=== PATIENT | female | born 1960 | race Caucasian/White ===

== ENCOUNTER 2017-07-19 03:50 | Emergency (ER) | payer OTHER ==
[~2017-07-19] VITALS: Ht 167.6 cm; Wt 88.0 kg
[~2017-07-19 03:50] MED LIST: ADAL40KI INJ; CHOL100010 PO; CLON2TAB3 PO; LANS30CA63 PO; MULT-506 PO; ONDA8TAB62 SL; TOPI200T6 PO
[2017-07-19 03:52] VITALS: TEMP 36.9; Ht 167.6 cm; Wt 88.0 kg
[2017-07-19] MEDS ORDERED: HYDROmorphone INJ 1 MG/ML SYR IV STA ×2 (04:10→06:11)
[2017-07-19] MEDS ORDERED: SODIUM CHLORIDE 0.9% 1000ML 1,000 ML IV STA (04:10)
[2017-07-19] MEDS ORDERED: PROMETHAZINE HCL INJ 25 MG in SODIUM CHLORIDE 0.9% 50ML 50 ML IV STA (04:10)
[2017-07-19] MEDS ORDERED: METHYLPREDNISOLONE 125 MG VIAL IV STA (04:18)
--- NOTE | 2017-07-19 04:31 | EMERGENCY ROOM VISIT NOTE ---
History First contact with patient: 03:59 Chief Complaint: GI ASSESSMENT Stated Complaint: CROHN'S DISEASE FLARE Nursing Triage Summary: Patient states "I have Crohns disease and it was controlled for awhile with Beti. They did an MRI and found active crohns in the middle section. I was on 60 mg of Prednisone then they weaned me down and started me on another medicine. They lowered that medicine. Now I have pain, diarrhea, nausea and acid reflux." History of Present Illness The patient is a 56 year old female who presents to the Emergency Room with complaints of a Crohn's flare. The patient states that she has had Crohn's for the past 25 years. She states that she was on Humira for some time which did seem to help, however this stopped helping earlier this summer. She states that her chief executive or managing director found an active flareup in her jejunum in late Spring. They started her on 60 mg of prednisone and a new medication. She has been weaning down on the prednisone but states that her symptoms have been worsening. She is visiting [facility] from [place] for an bryson ceremony for her . She reports that since arriving here yesterday, she has developed diffuse abdominal pain, nausea and diarrhea. She denies vomiting. She reports having acid reflux which she has had for some time and she feels is due to the steroids. She states this feels similar to flareups she has had in the past, and she usually does well with IV Solu-Medrol, fluids, pain medicine and Phenergan for nausea. She denies any urinary symptoms or fevers/chills. She denies any blood in her stools. Review of Systems A complete 10 point review of systems was reviewed with the patient with pertinent positives and negatives as per history of present illness. All else were negative. Past Medical/Surgical History Medical Problems: (1) Migraine headache Family History No significant family history Social History Smoking Status: Never Smoker Drug Use: none Marital Status: Housing Status: lives with significant other Current/Historical Medications Scheduled Diazepam (Diazepam), 15 MG PO HS Famotidine (Famotidine), 20 MG PO BID Pantoprazole (Pantoprazole Sodium), 40 MG PO BID Paroxetine (Paroxetine HCl), 40 MG PO DAILY Pravastatin Sod (Pravastatin Sodium), 20 MG PO DAILY Prednisone (Prednisone), 20 MG PO DAILY Propranolol (Inderal), 10 MG PO TID [entyvio infusion], 1 DOSE IV q8 weeks Physical Exam Vital Signs Date Time Temp Pulse Resp B/P (MAP) Pulse Ox O2 Delivery O2 Flow Rate FiO2 07/19/17 07:04 91 18 111/87 93 07/19/17 06:28 85 16 116/73 93 Room Air 07/19/17 04:59 90 20 109/69 95 Room Air 07/19/17 03:52 36.9 109 18 122/73 97 Room Air Physical Exam VITALS: Vitals are noted on the nurse's note and reviewed by myself. Vital signs stable. GENERAL: This is a 56-year-old female, in no acute distress, nondiaphoretic, well-developed well-nourished. HEENT: Normocephalic. PERRLA. Mucous membranes moist. Neck is supple without nuchal rigidity. HEART: Regular rate and rhythm without murmurs gallops or rubs. LUNGS: Clear to auscultation bilaterally without wheezes, rales or rhonchi. ABDOMEN: Positive bowel sounds x 4. Soft, mild diffuse tenderness to palpation. No guarding or rebound tenderness. No focal tenderness. NEURO: Patient was alert and oriented to person place and time. Medical Decision & Procedures ER Provider Diagnostic Interpretation: PA CHEST RADIOGRAPH AND UPRIGHT AND SUPINE AP RADIOGRAPHS OF THE ABDOMEN CLINICAL HISTORY: Abdominal pain. History of Crohn's disease. COMPARISON STUDY: No previous studies for comparison. FINDINGS: Lung volumes are normal. Lungs are clear. No pneumothorax or pleural effusion is present. Cardiac size is at the upper limits of normal. There is no evidence of pulmonary edema. Surgical anchor within the right humerus is noted. Old right-sided rib fractures are present. No consolidation is identified. There is no free air. The bowel gas pattern is normal. Pelvic calcifications likely reflect phleboliths. A left abdominal calcification is of doubtful significance. IMPRESSION: 1. No free air or evidence of bowel obstruction. 2. No acute cardiopulmonary findings. Laboratory Results 07/19/17 04:28 Red Blood Count 4.55, Mean Corpuscular Volume 83.1, Mean Corpuscular Hemoglobin 25.9, Mean Corpuscular Hemoglobin Concent 31.2, Mean Platelet Volume 10.3, Neutrophils (%) (Auto) 58.1, Lymphocytes (%) (Auto) 28.6, Monocytes (%) (Auto) 11.2, Eosinophils (%) (Auto) 1.1, Basophils (%) (Auto) 0.3, Neutrophils # (Auto ) 7.09, Lymphocytes # (Auto) 3.50, Monocytes # (Auto) 1.37, Eosinophils # (Auto ) 0.14, Basophils # (Auto) 0.04 07/19/17 04:28 Test 07/19/17 04:28 White Blood Count 12.23 K/uL (4.8-10.8) Red Blood Count 4.55 M/uL (4.2-5.4) Hemoglobin 11.8 g/dL (12.0-16.0) Hematocrit 37.8 % (37-47) Mean Corpuscular Volume 83.1 fL (80-100) Mean Corpuscular Hemoglobin 25.9 pg (25-34) Mean Corpuscular Hemoglobin Concent 31.2 g/dl (32-36) Platelet Count 343 K/uL (130-400) Mean Platelet Volume 10.3 fL (7.4-10.4) Neutrophils (%) (Auto) 58.1 % Lymphocytes (%) (Auto) 28.6 % Monocytes (%) (Auto) 11.2 % Eosinophils (%) (Auto) 1.1 % Basophils (%) (Auto) 0.3 % Neutrophils # (Auto) 7.09 K/uL (1.4-6.5) Lymphocytes # (Auto) 3.50 K/uL (1.2-3.4) Monocytes # (Auto) 1.37 K/uL (0.11-0.59) Eosinophils # (Auto) 0.14 K/uL (0-0.5) Basophils # (Auto) 0.04 K/uL (0-0.2) RDW Standard Deviation 53.5 fL (36.4-46.3) RDW Coefficient of Variation 17.4 % (11.5-14.5) Immature Granulocyte % (Auto) 0.7 % Immature Granulocyte # (Auto) 0.09 K/uL (0.00-0.02) Anion Gap 11.0 mmol/L (3-11) Est Creatinine Clear Calc Drug Dose 70.2 ml/min Estimated GFR () 72.9 Estimated GFR (Non- 62.9 BUN/Creatinine Ratio 20.8 (10-20) Calcium Level 8.6 mg/dl (8.5-10.1) Total Bilirubin 0.3 mg/dl (0.2-1) Aspartate Amino Transf (AST/SGOT) U/L (15-37) Alanine Aminotransferase (ALT/SGPT) 31 U/L (12-78) Alkaline Phosphatase 72 U/L (45-117) Total Protein 6.9 gm/dl (6.4-8.2) Albumin 3.5 gm/dl (3.4-5.0) Globulin 3.4 gm/dl (2.5-4.0) Albumin/Globulin Ratio 1.0 (0.9-2) Lipase 111 U/L (73-393) Medications Administered Medications (Trade) Dose Ordered Sig/Leslie Route Start Time Stop Time Status Last Admin Dose Admin Sodium Chloride 1,000 ml @ 999 mls/hr Q1H1M STAT IV 07/19/17 04:10 07/19/17 05:10 DC 07/19/17 04:36 999 MLS/HR Promethazine HCl 25 mg/Sodium Chloride 51 ml @ 204 mls/hr NOW STAT IV 07/19/17 04:10 07/19/17 04:24 DC 07/19/17 04:37 204 MLS/HR Hydromorphone HCl (Dilaudid Inj) 1 mg NOW STAT IV 07/19/17 04:10 07/19/17 04:14 DC 07/19/17 04:59 1 MG Methylprednisolone Sodium Succinate (Solu-Medrol IV) 125 mg NOW STAT IV 07/19/17 04:18 07/19/17 04:19 DC 07/19/17 04:57 125 MG Diphenhydramine HCl (Benadryl Inj) 25 mg NOW STAT IV 07/19/17 05:03 07/19/17 05:04 DC 07/19/17 05:09 25 MG Hydromorphone HCl (Dilaudid Inj) 1 mg NOW STAT IV 07/19/17 06:11 07/19/17 06:12 DC 07/19/17 06:26 1 MG ED Course The patient was evaluated as above. Labs were drawn and IV access was obtained. Patient was medicated with 1 L normal saline solution, 125 mg IV Medrol IV, 25 mg Phenergan IV and 1 mg Dilaudid. Patient reported to nursing staff that she develops itchiness when she receives pain medications. She was given 25 mg Benadryl. Patient was reevaluated by myself and states that her symptoms have improved, but she is still having some pain. An additional 1 mg Dilaudid IV was ordered. Patient was reevaluated and was feeling better. She will be discharged home. Discharge instructions were reviewed with the patient. The patient verbalized understanding of my assessment and treatment plan and was discharged home in good condition. Medical Decision Differential diagnosis includes Crohn's flare, bowel obstruction, fistula, intra -abdominal abscess, gastritis, gastroenteritis, colitis, among others. The patient is a 56-year-old female who presents today complaining of abdominal pain consistent with a Crohn's flare. Labs revealed a mild leukocytosis, likely secondary to the patient's steroid use. Labs are otherwise unremarkable. Abdominal series showed no evidence of obstruction. Patient is afebrile. She reports the symptoms are consistent with previous Crohn's flares and she seems to have very close follow-up with her chief executive or managing director. The patient was treated with IV Dilaudid, Phenergan and Solu-Medrol with significant improvement of her symptoms. She is returning home later this evening and plans to follow-up with her chief executive or managing director. I discussed options of care including further workup such as CT scan versus discharge home to follow-up closely with the chief executive or managing director, the patient much prefers to be discharged home. She was advised to return here for any worsening or new/ concerning symptoms. She was agreeable to this treatment plan. Based on the patient's presentation and work up, I feel the patient is stable for outpatient treatment. The patient was educated to return to the emergency department for any worsening of their current condition or new/concerning symptoms. She will follow up with her primary care provider and GI. Medication Reconcilliation Current Medication List: was personally reviewed by me Blood Pressure Screening Patient's blood pressure: Normal blood pressure Impression Primary Impression: Crohn's disease Additional Impression: Generalized abdominal pain Departure Information Dispostion Home / Self-Care Condition GOOD Referrals No Doctor, Assigned (PCP) Patient Instructions My [facility] Additional Instructions You have been treated in the Emergency Department your Abdominal Pain. Laboratory results and imaging studies have ruled out any emergent causes for your abdominal pain which would warrant admission or surgery. Call your chief executive or managing director to schedule follow-up. Drink plenty of water and stay well hydrated. Return to the emergency department if your symptoms persist despite treatment plan outlined above or for any worsening or new/concerning symptoms. Problem Qualifiers
[2017-07-19 04:37] LABS: BASO % 0.3 %; BASO ABS # 0.04 K/uL (0-0.2); COMPLETE YES; EOS % 1.1 %; HEMATOCRIT 37.8 % (37-47); IG% 0.7 %; LYMPH % 28.6 %; MEAN CELL VOLUME 83.1 fL (80-100); MEAN CORPUSCULAR HEMOGLOBIN 25.9 pg (25-34); MEAN CORPUSCULAR HGB CONC 31.2 g/dl (32-36); MEAN PLATELET VOLUME 10.3 fL (7.4-10.4); MONO % 11.2 %; NEUT % 58.1 %; PLATELET COUNT 343 K/uL (130-400); RED BLOOD COUNT 4.55 M/uL (4.2-5.4); WHITE BLOOD COUNT 12.23 K/uL (4.8-10.8)
[2017-07-19] MEDS ORDERED: DiphenhydrAMINE HCL 50 MG/ML VIAL IV STA (05:03)
[2017-07-19 05:18] LABS: ALKALINE PHOSPHATASE 72 U/L (45-117); ALT/SGPT 31 U/L (12-78); BLOOD UREA NITROGEN 21 mg/dl (7-18); BUN/CREATININE RATIO 20.8 (10-20); CALCIUM 8.6 mg/dl (8.5-10.1); CARBON DIOXIDE 22 mmol/L (21-32); CHLORIDE 108 mmol/L (98-107); GLUCOSE 110 mg/dl (70-99); SODIUM 141 mmol/L (136-145)
[2017-07-19] MEDS ORDERED: PROP10TA7 PO (06:26)
[2017-07-19] MEDS ORDERED: VLM5CL PO (06:26)
[2017-07-19] MEDS ORDERED: FAMO1TAB47 PO (06:26)
[2017-07-19] MEDS ORDERED: PRX/40 PO (06:26)
[2017-07-19] MEDS ORDERED: PRT/40 PO (06:26)
[2017-07-19] MEDS ORDERED: PRED-301 PO (06:27)
[2017-07-19] MEDS ORDERED: PRVC/20 PO (06:27)
[2017-07-19] MEDS ORDERED: [UNRECOGNIZED DRUG - OTHER] IV (06:29)
--- NOTE | 2017-07-19 06:49 | DIAGNOSTIC IMAGING REPORT ---
PA CHEST RADIOGRAPH AND UPRIGHT AND SUPINE AP RADIOGRAPHS OF THE ABDOMEN CLINICAL HISTORY: Abdominal pain. History of Crohn's disease. COMPARISON STUDY: No previous studies for comparison. FINDINGS: Lung volumes are normal. Lungs are clear. No pneumothorax or pleural effusion is present. Cardiac size is at the upper limits of normal. There is no evidence of pulmonary edema. Surgical anchor within the right humerus is noted. Old right-sided rib fractures are present. No consolidation is identified. There is no free air. The bowel gas pattern is normal. Pelvic calcifications likely reflect phleboliths. A left abdominal calcification is of doubtful significance. IMPRESSION: 1. No free air or evidence of bowel obstruction. 2. No acute cardiopulmonary findings. Electronically signed by: Gwyn Tucker M.D. 07/19/2017 6:48 AM Dictated Date/Time: 07/19/2017 6:47 AM
[2017-07-19 07:04] VITALS: BP 111/87; PULSE 91; O2SAT 93
== END 2017-07-19 07:05 | disposition home or self-care (01) ==
LOC: C.EDB 03:51 → C.EDA 07:05
DX: K52.9 Noninfective gastroenteritis and colitis, unspecified (principal); R10.84 Generalized abdominal pain; Z79.899 Other long term (current) drug therapy; Z79.52 Long term (current) use of systemic steroids

== ENCOUNTER 2017-07-21 09:30 | Inpatient (IN) | payer OTHER ==
[~2017-07-21] VITALS: Ht 167.6 cm; Wt 87.8 kg
[~2017-07-21 09:30] MED LIST changes: -ADAL40KI INJ; -CHOL100010 PO; -CLON2TAB3 PO; +FAMO1TAB47 PO; -LANS30CA63 PO; -MULT-506 PO; -ONDA8TAB62 SL; +PRED-301 PO; +PROP10TA7 PO; +PRT/40 PO; +PRVC/20 PO; +PRX/40 PO; -TOPI200T6 PO; +VLM5CL PO; +[UNRECOGNIZED DRUG - OTHER] IV
[2017-07-21] MEDS ORDERED: ONDANSETRON INJ 2 MG/ML 2 ML VIAL IV STA (09:58)
[2017-07-21] MEDS ORDERED: FAMOTIDINE 20MG/102 ML D5W IV STA (09:58)
[2017-07-21] MEDS ORDERED: MoRPHine SULFATE 4 MG/ML 1 ML CARP\\VIAL IV STA (09:58)
[2017-07-21] MEDS ORDERED: SODIUM CHLORIDE 0.9% 1000ML 1,000 ML IV STA ×3 (09:58→13:38)
--- NOTE | 2017-07-21 10:11 | EMERGENCY ROOM VISIT NOTE ---
History Report prepared by Deneen: Murphy Jenkins Under the Supervision of: Dr. Johnie Gay M.D. First contact with patient: 09:45 Chief Complaint: OTHER COMPLAINT Stated Complaint: CROHNS FLARE History of Present Illness The patient is a 56 year old female who presents to the Emergency Room with complaints of lower abdominal pain that began a couple of days ago. She rates her pain an 8/10 in severity. She was seen in the ER two days ago for Crohn's disease flare. She was diagnosed with Crohn's disease 25 years ago. She notes that she was taking Humira, but it stopped helping her symptoms. She has also tried Prednisone and Entyvio with no relief. She started on 60 mg of Prednisone but is now down to 20 mg. 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 She has recently tried a full liquid diet, but tried to eat solid food last night. This exacerbated her symptoms. She states her symptoms have not been this severe for the past 20 years. She is also experiencing nausea , vomiting, and diarrhea. Her abdominal pain worsens with movement. She denies any fevers, chills, back pain, hematochezia, melena, or abnormal urinary symptoms. She has a history of small bowel obstructions and notes that her symptoms do not seem like that. Source of History: patient Onset: a couple of days ago Position: abdomen Symptom Intensity: 8/10 Quality: sharp Timing: constant Modifying Factors (Worsening): movement Associated Symptoms: + nausea, + vomiting, + diarrhea, No fevers, No chills , No back pain, No melena, No hematochezia, No urinary symptoms Review of Systems See HPI for pertinent positives and negatives. A total of ten systems were reviewed and were otherwise negative. Past Medical & Surgical Medical Problems: (1) Migraine headache Family History No significant family history Social History Smoking Status: Never Smoker Drug Use: none Marital Status: Housing Status: lives with significant other Current/Historical Medications Scheduled Diazepam (Diazepam), 15 MG PO HS Famotidine (Famotidine), 20 MG PO BID Pantoprazole (Pantoprazole Sodium), 40 MG PO BID Paroxetine (Paroxetine HCl), 40 MG PO DAILY Pravastatin Sod (Pravastatin Sodium), 20 MG PO DAILY Prednisone (Prednisone), 20 MG PO DAILY Propranolol (Inderal), 10 MG PO TID [entyvio infusion], 1 DOSE IV q8 weeks Allergies Coded Allergies: NSAIDs (Unverified Allergy, Unknown, ., 07/21/17) CAN'T TAKE DUE TO CROHNS Penicillins (Verified Allergy, Unknown, rash, 07/21/17) Sulfa Drugs (Verified Allergy, Unknown, rash, 07/21/17) Metoclopramide (Verified Adverse Reaction, Intermediate, LEGS KICK INVOLUNTARILY, 07/21/17) Sumatriptan (Verified Adverse Reaction, Intermediate, LIGHTHEADED, 07/21/17 ) Physical Exam Vital Signs Date Time Temp Pulse Resp B/P (MAP) Pulse Ox O2 Delivery O2 Flow Rate FiO2 07/21/17 14:09 87 18 129/90 95 Room Air 07/21/17 12:05 86 15 108/73 95 Room Air 07/21/17 11:21 82 07/21/17 11:15 78 18 111/82 97 Room Air 07/21/17 09:34 36.5 96 22 132/85 98 Room Air Physical Exam GENERAL: Awake, alert, appearing to be uncomfortable but in no acute distress HENT: Normocephalic, atraumatic. Dry mucous membranes. EYES: Normal conjunctiva. Sclera non-icteric. NECK: Supple. No nuchal rigidity. FROM. No JVD. RESPIRATORY: Clear to auscultation. CARDIAC: Regular rate, normal rhythm. Extremities warm and well perfused. Pulses equal. ABDOMEN: Soft, mild abdominal bloating but no significant distention. Mild LLQ and epigastrium tenderness to palpation. No rebound or guarding. No masses. No peritoneal signs. RECTAL: Deferred. MUSCULOSKELETAL: Chest examination reveals no tenderness. The back is symmetrical on inspection without obvious abnormality. There is no CVA tenderness to palpation. No joint edema. LOWER EXTREMITIES: Calves are equal size bilaterally and non-tender. No edema. No discoloration. NEURO: Normal sensorium. No sensory or motor deficits noted. SKIN: No rash or jaundice noted. Medical Decision & Procedures ER Provider Diagnostic Interpretation: Radiology results as stated below per my review and radiologist interpretation: ABDOMEN AND PELVIS CT WITH IV CONTRAST CT DOSE: 710.94 mGy.cm HISTORY: LLQ abd pain h/o Crohn's TECHNIQUE: Multiaxial CT images of the abdomen and pelvis were performed following the use of intravenous contrast. A dose lowering technique was utilized adhering to the principles of ALARA. COMPARISON STUDY: Chest and abdominal series 07/19/2017. FINDINGS: The lung bases are clear. The liver, spleen, adrenal glands, pancreas, and kidneys are unremarkable. There are few gallstones. No retroperitoneal lymphadenopathy. The bladder, uterus, and ovaries are unremarkable. No bowel obstruction. Normal appendix. Mild thickening and minimal pericolonic fat stranding at the splenic flexure of the colon and descending colon. This is consistent with a nonspecific colitis. IMPRESSION: 1. Mild thickening and minimal pericolonic fat stranding at the splenic flexure of the colon and descending colon. This is consistent with a nonspecific colitis. However, this favors an inflammatory etiology given the patient's history of Crohn's disease. 2. Cholelithiasis. Electronically signed by: Valdemar Diallo M.D. 07/21/2017 1:04 PM Dictated Date/Time: 07/21/2017 1:00 PM Laboratory Results 07/21/17 11:12 Red Blood Count 4.55, Mean Corpuscular Volume 83.7, Mean Corpuscular Hemoglobin 26.8, Mean Corpuscular Hemoglobin Concent 32.0, Mean Platelet Volume 10.1, Neutrophils (%) (Auto) 80.0, Lymphocytes (%) (Auto) 14.3, Monocytes (%) (Auto) 4.3, Eosinophils (%) (Auto) 0.6, Basophils (%) (Auto) 0.3, Neutrophils # (Auto) 8.97, Lymphocytes # (Auto) 1.61, Monocytes # (Auto) 0.48, Eosinophils # (Auto) 0.07, Basophils # (Auto) 0.03 07/21/17 11:12 Test 07/21/17 11:12 07/21/17 13:17 White Blood Count 11.22 K/uL (4.8-10.8) Red Blood Count 4.55 M/uL (4.2-5.4) Hemoglobin 12.2 g/dL (12.0-16.0) Hematocrit 38.1 % (37-47) Mean Corpuscular Volume 83.7 fL (80-100) Mean Corpuscular Hemoglobin 26.8 pg (25-34) Mean Corpuscular Hemoglobin Concent 32.0 g/dl (32-36) Platelet Count 349 K/uL (130-400) Mean Platelet Volume 10.1 fL (7.4-10.4) Neutrophils (%) (Auto) 80.0 % Lymphocytes (%) (Auto) 14.3 % Monocytes (%) (Auto) 4.3 % Eosinophils (%) (Auto) 0.6 % Basophils (%) (Auto) 0.3 % Neutrophils # (Auto) 8.97 K/uL (1.4-6.5) Lymphocytes # (Auto) 1.61 K/uL (1.2-3.4) Monocytes # (Auto) 0.48 K/uL (0.11-0.59) Eosinophils # (Auto) 0.07 K/uL (0-0.5) Basophils # (Auto) 0.03 K/uL (0-0.2) RDW Standard Deviation 54.5 fL (36.4-46.3) RDW Coefficient of Variation 17.6 % (11.5-14.5) Immature Granulocyte % (Auto) 0.5 % Immature Granulocyte # (Auto) 0.06 K/uL (0.00-0.02) Anion Gap 8.0 mmol/L (3-11) Est Creatinine Clear Calc Drug Dose 58.4 ml/min Estimated GFR () 58.5 Estimated GFR (Non- 50.5 BUN/Creatinine Ratio 13.5 (10-20) Lactic Acid Level 3.1 mmol/L (0.4-2.0) Calcium Level 9.1 mg/dl (8.5-10.1) Total Bilirubin 0.3 mg/dl (0.2-1) Direct Bilirubin < 0.1 mg/dl (0-0.2) Aspartate Amino Transf (AST/SGOT) 14 U/L (15-37) Alanine Aminotransferase (ALT/SGPT) 30 U/L (12-78) Alkaline Phosphatase 70 U/L (45-117) Total Protein 7.0 gm/dl (6.4-8.2) Albumin 3.7 gm/dl (3.4-5.0) Lipase 137 U/L (73-393) Urine Color YELLOW Urine Appearance CLEAR (CLEAR) Urine pH 5.0 (4.5-7.5) Urine Specific [place] 1.040 (1.000-1.030) Urine Protein NEG (NEG) Urine Glucose (UA) NEG (NEG) Urine Ketones NEG (NEG) Urine Occult Blood NEG (NEG) Urine Nitrite NEG (NEG) Urine Bilirubin NEG (NEG) Urine Urobilinogen NEG (NEG) Urine Leukocyte Esterase NEG (NEG) Laboratory results reviewed by me Medications Administered Medications (Trade) Dose Ordered Sig/Leslie Route Start Time Stop Time Status Last Admin Dose Admin Sodium Chloride 1,000 ml @ 999 mls/hr Q1H1M STAT IV 07/21/17 09:58 07/21/17 10:58 DC 07/21/17 09:58 999 MLS/HR Ondansetron HCl (Zofran Inj) 4 mg NOW STAT IV 07/21/17 09:58 07/21/17 10:06 DC 07/21/17 11:17 4 MG Famotidine (Pepcid 20mg/100 ml) 20 mg ONE STAT IV 07/21/17 09:58 07/21/17 10:06 DC 07/21/17 11:19 20 MG Morphine Sulfate (MoRPHine SULFATE INJ) 6 mg NOW STAT IV 07/21/17 09:58 07/21/17 10:06 DC 07/21/17 11:19 6 MG Sodium Chloride 1,000 ml @ 999 mls/hr Q1H1M STAT IV 07/21/17 11:47 07/21/17 12:47 DC 07/21/17 14:04 999 MLS/HR Acetaminophen 100 ml @ 400 mls/hr NOW STAT IV 07/21/17 11:51 07/21/17 12:05 DC 07/21/17 12:00 400 MLS/HR Hydromorphone HCl (Dilaudid Inj) 1 mg NOW STAT IV 07/21/17 13:53 07/21/17 13:55 DC 07/21/17 14:04 1 MG Ondansetron HCl (Zofran Inj) 4 mg Q6H PRN IV 07/21/17 14:45 08/20/17 14:44 07/21/17 16:31 4 MG Sodium Chloride 1,000 ml @ 100 mls/hr Q10H IV 07/21/17 14:45 08/20/17 14:44 07/21/17 23:57 100 MLS/HR Methylprednisolone Sodium Succinate (Solu-Medrol IV) 125 mg NOW STAT IV 07/21/17 14:32 07/21/17 14:45 DC 10/6/17 14:52 125 MG Morphine Sulfate (MoRPHine SULFATE INJ) 1 mg Q4H PRN IV 07/21/17 14:45 08/04/17 14:44 07/21/17 23:57 1 MG Promethazine HCl 25 mg/Sodium Chloride 51 ml @ 204 mls/hr Q6H PRN IV 07/21/17 14:45 08/20/17 14:44 07/21/17 19:20 204 MLS/HR ED Course 0945: The patient was evaluated in room B2. A complete history and physical exam was performed. 0958: Ordered Morphine Sulfate 6 mg IV, Famotidine 20 mg IV, Zofran Inj 4 mg IV , Sodium Chloride 1000 ml @ 999 mls/hr IV 1147: Ordered Sodium Chloride 1000 ml @ 999 mls/hr IV 1151: Ordered Acetaminophen 100 ml @ 400 mls/hr IV 1338: Ordered Sodium Chloride 1000 ml @ 999 mls/hr IV 1353: Ordered Dilaudid Inj 1 mg IV 1358: Upon reexamination, the patient was resting. I discussed the test results and treatment plan with Dr. Evangelista of [facility] [place] The patient will be evaluated for further management. Medical Decision I reviewed the patient's past medical history, medications, and the nursing notes as described above. Differential diagnoses include Crohn's' flare, colitis, diverticulitis, partial bowel obstruction, biliary etiology, gastroenterology, UTI, and pyelonephritis. The patient is a 56-year-old woman with a past medical history of Crohn's who presents emergency Department with worsening pain, nausea, diarrhea after being seen in the ED 2 days ago for similar symptoms per history of present illness. Arrival the patient appears uncomfortable but in no acute distress, afebrile with stable vital signs. Exam has mild left lower quadrant and epigastric tenderness to palpation without peritoneal signs, mild bloating but no significant distention. Given this is the patient's repeat visit in with worsening symptoms with her history of partial obstruction will obtain CT scan. WBC 11.2 improved from prior however lactate elevated at 3.1. Labs otherwise unremarkable. CT of the abdomen and pelvis showing stranding surrounding the splenic flexure with findings consistent with flare from the patient's Crohn disease. Despite the patient's elevated lactate, given the patient's WBC is improving and she is otherwise afebrile and nontoxic, her hyperlacticemia is most likely due to dehydration and inflammation and thus will defer antibiotics at this time. Case was discussed with medicine hospitalist will admit the patient for further management. Medication Reconcilliation Current Medication List: was personally reviewed by me Blood Pressure Screening Patient's blood pressure: Normal blood pressure Blood pressure disposition: Did not require urgent referral Consults Time Called: [id number] Consulting Physician: Dr. Evangelista - [facility] [place] Returned Call: [phone] Discussed the patient's case. The patient will be evaluated for further treatment and disposition. Impression Primary Impression: Exacerbation of Crohn's disease Scribe Attestation The scribe's documentation has been prepared under my direction and personally reviewed by me in its entirety. I confirm that the note above accurately reflects all work, treatment, procedures, and medical decision making performed by me. Departure Information Dispostion Being Evaluated By Hospitalist Referrals No Doctor, Assigned (PCP) Patient Instructions My [facility]
[2017-07-21 11:32] LABS: BASO % 0.3 %; BASO ABS # 0.03 K/uL (0-0.2); COMPLETE YES; EOS % 0.6 %; HEMATOCRIT 38.1 % (37-47); IG% 0.5 %; LYMPH % 14.3 %; LYMPH ABS # 1.61 K/uL (1.2-3.4); MEAN CELL VOLUME 83.7 fL (80-100); MEAN CORPUSCULAR HEMOGLOBIN 26.8 pg (25-34); MEAN PLATELET VOLUME 10.1 fL (7.4-10.4); MONO % 4.3 %; PLATELET COUNT 349 K/uL (130-400); RED BLOOD COUNT 4.55 M/uL (4.2-5.4); WHITE BLOOD COUNT 11.22 K/uL (4.8-10.8)
[2017-07-21 11:44] LABS: ALT/SGPT 30 U/L (12-78); BLOOD UREA NITROGEN 16 mg/dl (7-18); BUN/CREATININE RATIO 13.5 (10-20); CALCIUM 9.1 mg/dl (8.5-10.1); CARBON DIOXIDE 26 mmol/L (21-32); CHLORIDE 108 mmol/L (98-107); GLUCOSE 116 mg/dl (70-99); POTASSIUM 3.8 mmol/L (3.5-5.1); SODIUM 143 mmol/L (136-145)
[2017-07-21 11:47] LABS: ALKALINE PHOSPHATASE 70 U/L (45-117); AST/SGOT 14 U/L (15-37)
[2017-07-21] MEDS ORDERED: ACETAMINOPHEN IV 100 ML IV STA (11:51)
[2017-07-21] MEDS ORDERED: OPTIRAY 320 IV PRN (12:00)
--- NOTE | 2017-07-21 13:06 | DIAGNOSTIC IMAGING REPORT ---
ABDOMEN AND PELVIS CT WITH IV CONTRAST CT DOSE: 710.94 mGy.cm HISTORY: LLQ abd pain h/o Crohn's TECHNIQUE: Multiaxial CT images of the abdomen and pelvis were performed following the use of intravenous contrast. A dose lowering technique was utilized adhering to the principles of ALARA. COMPARISON STUDY: Chest and abdominal series 07/19/2017. FINDINGS: The lung bases are clear. The liver, spleen, adrenal glands, pancreas, and kidneys are unremarkable. There are few gallstones. No retroperitoneal lymphadenopathy. The bladder, uterus, and ovaries are unremarkable. No bowel obstruction. Normal appendix. Mild thickening and minimal pericolonic fat stranding at the splenic flexure of the colon and descending colon. This is consistent with a nonspecific colitis. IMPRESSION: 1. Mild thickening and minimal pericolonic fat stranding at the splenic flexure of the colon and descending colon. This is consistent with a nonspecific colitis. However, this favors an inflammatory etiology given the patient's history of Crohn's disease. 2. Cholelithiasis. Electronically signed by: Valdemar Diallo M.D. 07/21/2017 1:04 PM Dictated Date/Time: 07/21/2017 1:00 PM
[2017-07-21 13:38] LABS: URINE APPEARANCE CLEAR (CLEAR); URINE BILIRUBIN NEG (NEG); URINE COLOR YELLOW; URINE NITRITE NEG (NEG); UROBILINOGEN NEG (NEG); ZZUR CULT IF INDIC CLEAN CATCH NO
[2017-07-21 13:39] LABS: MANUAL MICROSCOPIC REQUIRED? NO; REVIEW REQ? NO
[2017-07-21] MEDS ORDERED: HYDROmorphone INJ 0.5 MG/0.5 ML SYR IV STA (13:53)
[2017-07-21] MEDS ORDERED: METHYLPREDNISOLONE 125 MG VIAL IV STA (14:32)
[2017-07-21] MEDS ORDERED: ACETAMINOPHEN 325 MG TAB PO PRN (14:45)
[2017-07-21] MEDS ORDERED: MAGNESIUM HYDROXIDE SUSP 30 ML UDC PO PRN (14:45)
--- NOTE | 2017-07-21 14:57 | History and Physical ---
History & Physical Date & Time of Service: Jul 21, 2017 at 14:35 Chief Complaint: Crohns Flare Primary Care Physician: No Doctor, Assigned History of Present Illness Source: patient 56 y/o F c/o abd pain. Pt states she has had Crohn's for 25 yrs. She has been through many different medications over this time. Most recently, pt had been on Beti and this had worked for her for some time, however she started to have abd pain again and MRI revealed active Crohn's in her jejunum. She was taken off of Beti and put on a full liquid diet with prednisone, however she gained about 50 lbs with this. About 1 month ago, pt was started on Entyrio. She had her first dose, then a dose 1 week later, then 2 weeks later, and per protocol her next dose is due 8 weeks after the last, which will be 08/29. During the course of Entyrio, she has been on a prednisone taper starting at 60mg. She is currently on 20mg. She has been having ongoing issues with abd pain, n/v/d, and intolerance to PO with decreased intake. Pt states her pain was across her entire abd on presentation. She travelled to [place] with her so that he could accept an award from [facility]. Pt states they got to the hotel late and ordered room service. She had a burger given limited options despite not having had this food in over a year. She started having more abd pain, n/v/d and was seen in the ED 2 days ago. She was given solu-medrol, benadryl, phenergan, IVF and felt better. She was d/c'd at that time. At the award ceremony there was also a meal provided and she ate a salad which she also does not typically eat. Her sx started to get worse again yesterday and have continued to worsen. She could not tolerate PO today. s/p IVF and pain medications in the ED, pt is still with abd pain, but improving. Pain is now more localized on the L side of her abd. She has otherwise been in her usual state of health. She has increased anxiety which is typical for her, but otherwise denies fever, SOB, chest pain, LE pain or swelling. Pt states she plans to f/u with her GI provider once she is home as they have ongoing plans regarding her further management if the Entyrio did not work, which does seem to be the case. Past Medical/Surgical History Medical Problems: (1) Migraine headache Status: Chronic Crohn's Hyperlipidemia GERD Anxiety Insomnia Hx of pSBO related to Crohn's Family History No significant family history Mother suddenly Social History Smoking Status: Never Smoker Alcohol Use: none Drug Use: none Marital Status: Allergies Coded Allergies: NSAIDs (Unverified Allergy, Unknown, ., 07/21/17) CAN'T TAKE DUE TO CROHNS Penicillins (Verified Allergy, Unknown, rash, 07/21/17) Sulfa Drugs (Verified Allergy, Unknown, rash, 07/21/17) Metoclopramide (Verified Adverse Reaction, Intermediate, LEGS KICK INVOLUNTARILY, 07/21/17) Sumatriptan (Verified Adverse Reaction, Intermediate, LIGHTHEADED, 07/21/17 ) Home Medications Scheduled Diazepam (Diazepam), 15 MG PO HS Famotidine (Famotidine), 20 MG PO BID Pantoprazole (Pantoprazole Sodium), 40 MG PO BID Paroxetine (Paroxetine HCl), 40 MG PO DAILY Pravastatin Sod (Pravastatin Sodium), 20 MG PO DAILY Prednisone (Prednisone), 20 MG PO DAILY Propranolol (Inderal), 10 MG PO TID [entyvio infusion], 1 DOSE IV q8 weeks Review of Systems Pertinent positives and negatives reviewed in HPI--all others negative Physical Exam Vital Signs Date Time Temp Pulse Resp B/P (MAP) Pulse Ox O2 Delivery O2 Flow Rate FiO2 07/21/17 14:09 87 18 129/90 95 Room Air 07/21/17 12:05 86 15 108/73 95 Room Air 07/21/17 11:21 82 07/21/17 11:15 78 18 111/82 97 Room Air 07/21/17 09:34 36.5 96 22 132/85 98 Room Air General Appearance: WD/WN, no apparent distress Head: normocephalic, atraumatic, + pertinent finding (swelling c/w chronic steroid use) Eyes: normal inspection, EOMI ENT: hearing grossly normal Neck: supple Respiratory/Chest: normal breath sounds, no respiratory distress Cardiovascular: regular rate, rhythm, no edema Abdomen/GI: soft, + tenderness (L lateral) Diagnostics Laboratory Results Results Past 24 Hours Test 07/21/17 11:12 07/21/17 13:17 Range/Units White Blood Count 11.22 4.8-10.8 K/uL Red Blood Count 4.55 4.2-5.4 M/uL Hemoglobin 12.2 12.0-16.0 g/dL Hematocrit 38.1 37-47 % Mean Corpuscular Volume 83.7 80-100 fL Mean Corpuscular Hemoglobin 26.8 25-34 pg Mean Corpuscular Hemoglobin Concent 32.0 32-36 g/dl Platelet Count 349 130-400 K/uL Mean Platelet Volume 10.1 7.4-10.4 fL Neutrophils (%) (Auto) 80.0 % Lymphocytes (%) (Auto) 14.3 % Monocytes (%) (Auto) 4.3 % Eosinophils (%) (Auto) 0.6 % Basophils (%) (Auto) 0.3 % Neutrophils # (Auto) 8.97 1.4-6.5 K/uL Lymphocytes # (Auto) 1.61 1.2-3.4 K/uL Monocytes # (Auto) 0.48 0.11-0.59 K/uL Eosinophils # (Auto) 0.07 0-0.5 K/uL Basophils # (Auto) 0.03 0-0.2 K/uL RDW Standard Deviation 54.5 36.4-46.3 fL RDW Coefficient of Variation 17.6 11.5-14.5 % Immature Granulocyte % (Auto) 0.5 % Immature Granulocyte # (Auto) 0.06 0.00-0.02 K/uL Sodium Level 143 136-145 mmol/L Potassium Level 3.8 3.5-5.1 mmol/L Chloride Level 108 98-107 mmol/L Carbon Dioxide Level 26 21-32 mmol/L Anion Gap 8.0 3-11 mmol/L Blood Urea Nitrogen 16 7-18 mg/dl Creatinine 1.20 0.60-1.20 mg/dl Est Creatinine Clear Calc Drug Dose 58.4 ml/min Estimated GFR () 58.5 Estimated GFR (Non- 50.5 BUN/Creatinine Ratio 13.5 10-20 Random Glucose 116 70-99 mg/dl Lactic Acid Level 3.1 0.4-2.0 mmol/L Calcium Level 9.1 8.5-10.1 mg/dl Total Bilirubin 0.3 0.2-1 mg/dl Direct Bilirubin < 0.1 0-0.2 mg/dl Aspartate Amino Transf (AST/SGOT) 14 15-37 U/L Alanine Aminotransferase (ALT/SGPT) 30 12-78 U/L Alkaline Phosphatase 70 45-117 U/L Total Protein 7.0 6.4-8.2 gm/dl Albumin 3.7 3.4-5.0 gm/dl Lipase 137 73-393 U/L Urine Color YELLOW Urine Appearance CLEAR CLEAR Urine pH 5.0 4.5-7.5 Urine Specific [place] 1.040 1.000-1.030 Urine Protein NEG NEG Urine Glucose (UA) NEG NEG Urine Ketones NEG NEG Urine Occult Blood NEG NEG Urine Nitrite NEG NEG Urine Bilirubin NEG NEG Urine Urobilinogen NEG NEG Urine Leukocyte Esterase NEG NEG Diagnostic Radiology CT AP: 1. Mild thickening and minimal pericolonic fat stranding at the splenic flexure of the colon and descending colon. This is consistent with a nonspecific colitis. However, this favors an inflammatory etiology given the patient's history of Crohn's disease. 2. Cholelithiasis. Impression Assessment and Plan 56 y/o F who was admitted on 07/21 for Crohn's flare Crohn's flare: 2nd trip to the ED this week Improving on IVF and pain medications Start steroids, phenergan, pain meds, IVF CT AP as noted, pt with hx of pSBO related to Crohn's CBC, PRP WNL UA neg Pt with elevated lactic acid, but VSS and no sign/sx c/w sepsis Discussed tx options at length with pt. Given she is from out of the area and has an active plan with her GI doctor, pt agrees and prefers to have this flare tx with steroids, etc if possible as above and discharged home once her flare is controlled with higher dose PO steroids. She will resume care with her ongoing GI doctor. Migraines: continue home meds Anxiety: continue home meds GERD: continue home meds Other: Full code Clears for now Ambulation for DVT proph given likely short duration of stay Level of Care Med/Surg Resuscitation Status FULL RESUSCITATION VTE Prophylaxis VTE Risk Assessment Done? Y/N: Yes Risk Level: Low
[2017-07-21] MEDS ORDERED: IV FLUIDS COMPLETED PRN (15:15)
[2017-07-21] MEDS: ONDANSETRON INJ 2 MG/ML 2 ML VIAL IV PRN (16:31)
[2017-07-21] MEDS: SODIUM CHLORIDE 0.9% 1000ML 1,000 ML IV SCH ×2 (16:32→23:57)
[2017-07-21 16:38] VITALS: BP 124/79; PULSE 77; TEMP 36.7; O2SAT 96
[2017-07-21 16:49] VITALS: BP 124/79; PULSE 77; TEMP 36.7; O2SAT 96; Ht 167.6 cm; Wt 87.8 kg
[2017-07-21] MEDS: MoRPHine SULFATE 2 MG/ML CARP IV PRN ×2 (18:04→23:57)
[2017-07-21] MEDS ORDERED: NURSING VERBAL MED ORDER ONE (19:00)
[2017-07-21] MEDS: HYDROmorphone INJ 0.5 MG/0.5 ML SYR IV PRN (19:01)
[2017-07-21] MEDS: PROMETHAZINE HCL INJ 25 MG in SODIUM CHLORIDE 0.9% 50ML 50 ML IV PRN (19:20)
[2017-07-21] MEDS: PROPRANOLOL HCL 10 MG TAB PO SCH (19:52)
[2017-07-21] MEDS: FAMOTIDINE 20 MG TAB PO SCH (19:52)
[2017-07-21] MEDS: PANTOprazole SOD 40 MG TAB PO SCH (19:52)
[2017-07-21] MEDS ORDERED: INFLUENZA ADMINISTRATION CHARGE ONE (20:30)
[2017-07-21] MEDS ORDERED: INFLUENZA VIRUS QUAD VACCINE 0.5 ML SYR IM. ONE (20:30)
[2017-07-21] MEDS ORDERED: DIAZEPAM 5MG TAB PO SCH (21:00)
[2017-07-21] MEDS: DIAZEPAM 5MG TAB PO SCH (21:31)
[2017-07-21] MEDS: METHYLPREDNISOLONE IV 40 MG in SYRINGE 0 ML IV SCH (21:32)
[2017-07-21] MEDS ORDERED: ALUMINUM/MAGNESIUM SUSP 18 ML, LIDOCAINE HCL 2% VISCOUS SOLN 6 ML, BARCODE IDENTIFIER 1 EA PO STA ×2 (23:23)
[2017-07-21] MEDS ORDERED: GI COCKTAIL PO ONE (23:30)
[2017-07-22 00:20] VITALS: BP 120/83; PULSE 82; TEMP 36.8; O2SAT 94
[2017-07-22] MEDS: HYDROmorphone INJ 0.5 MG/0.5 ML SYR IV PRN ×2 (01:54→08:55)
[2017-07-22] MEDS: ONDANSETRON INJ 2 MG/ML 2 ML VIAL IV PRN ×2 (04:31→12:58)
[2017-07-22] MEDS: METHYLPREDNISOLONE IV 40 MG in SYRINGE 0 ML IV SCH ×3 (05:44→21:32)
[2017-07-22] MEDS ORDERED: MoRPHine SULFATE 4 MG/ML 1 ML CARP\\VIAL IV PRN (06:15)
[2017-07-22 08:00] VITALS: O2SAT 94
[2017-07-22 08:01] VITALS: BP 118/77; PULSE 73; TEMP 36.6; O2SAT 95
[2017-07-22] MEDS: PROMETHAZINE HCL INJ 25 MG in SODIUM CHLORIDE 0.9% 50ML 50 ML IV PRN ×2 (08:19→17:04)
[2017-07-22] MEDS: PROPRANOLOL HCL 10 MG TAB PO SCH ×3 (08:22→21:30)
[2017-07-22] MEDS: FAMOTIDINE 20 MG TAB PO SCH ×2 (08:22→21:29)
[2017-07-22] MEDS: PAROXETINE 20 MG TAB PO SCH (08:23)
[2017-07-22] MEDS: PRAVASTATIN SOD 20 MG TAB PO SCH (08:23)
[2017-07-22] MEDS: PANTOprazole SOD 40 MG TAB PO SCH ×2 (08:24→21:31)
[2017-07-22] MEDS: SODIUM CHLORIDE 0.9% 1000ML 1,000 ML IV SCH ×2 (10:55→21:23)
[2017-07-22] MEDS ORDERED: HYDROmorphone INJ 1 MG/ML SYR ONE (13:33)
--- NOTE | 2017-07-22 13:43 | Gastrointestinal Consultation ---
Gastrointestinal Consultation Date of Consultation: Jul 22, 2017 Attending Physician: Dr Yordan Beyer Consulting Physician: Dr George Dawson Reason for Consultation: crohns History of Present Illness Patient is a 56 year old female with CC of abd pain. 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 Liam had been working well and she states had colo 1 year ago to TI normal. However in the spring had recurrent abd pain, diarrhea and nuausea. Went on Prednisone daily 60 mg with subsequent 50 lb weight gain. Started Enyvio about a month ago with induction doses given and next due 08/29/17. Prednisone taper was in process and she states below 40 mg started to have some pain, diarrhea and nausea. She was down to 20 mg when came to ER 07/29/17 ( reviewed labs, abd series, h and p). She is in town with her who is getting award from [employer]. She liver in [place] and has GI there. In ER given solumedrol 125 mg IV. Continued to have diarrhea, abd pain in her usual pattern periumbilical and LUQ cramping. BMs 5+ per day. No bloody nor black stools. No hx of Cdiff. EGD one year ago for GERD apparently some erosive gastritis but H.pylori neg. GERD worse on high dose steroids. CT A/P here mild thickening of splenic flexure and DC, cholelithiasis. She was taking imodium also for diarrhea. Also she was taking Protonix bid and Pepcid at hs for GERD. No dysphagia, no HH. CBC mildly elevated WBC, LFTS nl, lipase normal. Elevated lactic acid. Pt states her abd pain is better and diarrhea improved although was only on clears till lunch given full liquids. Past Medical/Surgical History Medical Problems: (1) Exacerbation of Crohn's disease Status: Acute Family History No significant family history Social History Smoking Status: Never Smoker Drug Use: none Marital Status: Housing Status: lives with significant other Allergies Coded Allergies: NSAIDs (Unverified Allergy, Unknown, ., 07/21/17) CAN'T TAKE DUE TO CROHNS Penicillins (Verified Allergy, Unknown, rash, 07/21/17) Sulfa Drugs (Verified Allergy, Unknown, rash, 07/21/17) Metoclopramide (Verified Adverse Reaction, Intermediate, LEGS KICK INVOLUNTARILY, 07/21/17) Sumatriptan (Verified Adverse Reaction, Intermediate, LIGHTHEADED, 07/21/17 ) Current Medications Home Meds and Scripts Medications Dose Route/Sig Max Daily Dose Days Date Category [entyvio infusion] 1 Dose IV Q8 WEEKS 07/19/17 Reported Prednisone 5 Mg Tab 20 Mg PO DAILY 07/19/17 Reported Pravastatin Sodium (Pravastatin Sod) 20 Mg Tab 20 Mg PO DAILY 07/19/17 Reported Inderal (Propranolol HCl) 10 Mg Tab 10 Mg PO TID 07/19/17 Reported Pantoprazole Sodium (Pantoprazole) 40 Mg Tab 40 Mg PO BID 07/19/17 Reported Diazepam 5 Mg Tab 15 Mg PO HS 07/19/17 Reported Paroxetine HCl (Paroxetine) 40 Mg Tab 40 Mg PO DAILY 07/19/17 Reported Famotidine 20 Mg Tab 20 Mg PO BID 07/19/17 Reported Review of Systems ROS 10 systems negative except as above. Physical Exam Date Time Temp Pulse Resp B/P (MAP) Pulse Ox O2 Delivery O2 Flow Rate FiO2 07/22/17 08:01 36.6 73 18 118/77 (91) 95 Room Air 07/22/17 00:20 36.8 82 20 120/83 (95) 94 Room Air 07/22/17 00:00 Room Air 07/21/17 16:49 36.7 77 18 124/79 96 Room Air 07/21/17 16:38 36.7 77 18 124/79 (94) 96 Room Air 07/21/17 15:42 81 20 121/59 95 Room Air 07/21/17 14:09 87 18 129/90 95 Room Air General Appearance: WD/WN, no apparent distress ENT: normal ENT inspection, hearing grossly normal Neck: supple, no adenopathy Respiratory/Chest: chest non-tender, normal breath sounds Cardiovascular: regular rate, rhythm, no edema Abdomen: normal bowel sounds, non tender, soft, no organomegaly 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 I would recommend on DC prednisone 40 mg daily and close f/u with her local GI. Advance diet as tolerated. Abd pain--crohns in differential diarrhea--crohns in differential but check Cdiff also N/V --could be secondary to crohns elevated WBC--on admit better than 07/19--repeat today elev lactic acid--no indication of ischemic bowel on CT and feels better, repeat today GERD--acid suppression--protonix bid and pepcid at hs
--- NOTE | 2017-07-22 14:03 | Progress Note ---
Subjective Date of Service: Jul 22, 2017. Subjective Pt evaluation today including: conversation w/ patient, physical exam, lab review, review of studies, conversation w/ center lead consultant, review of inpatient medication list Pain: moderate to severe pain PO Intake: clear liquids Voiding: no voiding problems long discussion regarding her Crohn's disease was on Remicade, then Humira but developed antibodies, most recently changed to Entyrio she feels the Entyrio is not working, has been tapering off of Prednisone, started at 60mg most recently on 20mg as outpatient with worsening symptoms pain is controlled somewhat with Morphine, patient requesting Dilaudid because that's what works best for her she would like to see a GI doctor here to get there opinion on Entyrio and also because she may be relocating here Problem List Medical Problems: (1) Exacerbation of Crohn's disease Status: Acute Review of Systems Abdomen: + pain, + nausea, + diarrhea Psychiatric: + anxiety, + insomnia All Other Systems: Reviewed and Negative Medications Current Inpatient Medications Medications (Trade) Dose Ordered Sig/Leslie Route Start Time Stop Time Status Last Admin Dose Admin Ioversol (Optiray 320) 125 ml UD PRN IV 07/21/17 12:00 07/25/17 11:59 Acetaminophen (Tylenol Tab) 650 mg Q4H PRN PO 07/21/17 14:45 08/20/17 14:44 Magnesium Hydroxide (Milk Of Magnesia Susp) 30 ml Q6H PRN PO 07/21/17 14:45 08/20/17 14:44 Ondansetron HCl (Zofran Inj) 4 mg Q6H PRN IV 07/21/17 14:45 08/20/17 14:44 07/22/17 12:58 4 MG Diazepam (Valium Tab) 15 mg HS PO 07/21/17 21:00 08/20/17 20:59 07/21/17 21:31 15 MG Famotidine (Pepcid Tab) 20 mg BID PO 07/21/17 20:00 08/20/17 20:59 07/22/17 08:22 20 MG Pantoprazole Sodium (Protonix Tab) 40 mg BID PO 07/21/17 20:00 08/20/17 20:59 07/22/17 08:24 40 MG Pravastatin Sodium (Pravachol Tab) 20 mg DAILY PO 07/22/17 08:00 08/21/17 08:59 07/22/17 08:23 20 MG Propranolol HCl (Inderal Tab) 10 mg TID PO 07/21/17 20:00 08/20/17 20:59 07/22/17 08:22 10 MG Paroxetine HCl (pAXil TAB) 60 mg QAM PO 07/22/17 08:00 08/21/17 08:59 07/22/17 08:23 60 MG Sodium Chloride 1,000 ml @ 100 mls/hr Q10H IV 07/21/17 14:45 08/20/17 14:44 07/22/17 10:55 100 MLS/HR Methylprednisolone Sodium Succinate 40 mg/Syringe 0.64 ml @ 1.5 mls/min Q8 IV 07/21/17 22:00 08/20/17 21:59 07/22/17 13:37 1.5 MLS/MIN Diphenhydramine HCl (Benadryl Syrup) 25 mg Q4H PRN PO 07/21/17 14:45 08/20/17 14:44 Promethazine HCl 25 mg/Sodium Chloride 51 ml @ 204 mls/hr Q6H PRN IV 07/21/17 14:45 08/20/17 14:44 07/22/17 08:19 204 MLS/HR Miscellaneous (Iv Fluids Completed) 1 ea PRN PRN N/A 07/21/17 15:15 07/21/18 15:14 Hydromorphone HCl (Dilaudid Inj) 1 mg Q3H PRN IV 07/22/17 12:15 08/05/17 12:14 Objective Vital Signs Date Time Temp Pulse Resp B/P (MAP) Pulse Ox O2 Delivery O2 Flow Rate FiO2 07/22/17 08:01 36.6 73 18 118/77 (91) 95 Room Air 07/22/17 00:20 36.8 82 20 120/83 (95) 94 Room Air 07/22/17 00:00 Room Air 07/21/17 16:49 36.7 77 18 124/79 96 Room Air 07/21/17 16:38 36.7 77 18 124/79 (94) 96 Room Air 07/21/17 15:42 81 20 121/59 95 Room Air 07/21/17 14:09 87 18 129/90 95 Room Air Physical Exam General Appearance: WD/WN, no apparent distress ENT: + pertinent finding (engel faces from Prednisone) Neck: supple, no adenopathy, no JVD, trachea midline Respiratory/Chest: chest non-tender, lungs clear, normal breath sounds, no respiratory distress, no accessory muscle use Cardiovascular: regular rate, rhythm, no edema, no gallop, no JVD, no murmur Abdomen: normal bowel sounds, soft, no organomegaly, + tenderness (LLQ, no rebound or rigidity) Extremities: normal range of motion, non-tender, normal inspection, no pedal edema, no calf tenderness Neurologic/Psychiatric: 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
[2017-07-22 14:55] VITALS: BP 114/78; PULSE 81
[2017-07-22 15:21] LABS: COMPLETE YES; IG% 0.6 %; LYMPH % 10.6 %; LYMPH ABS # 1.18 K/uL (1.2-3.4); MEAN CELL VOLUME 82.5 fL (80-100); MEAN CORPUSCULAR HEMOGLOBIN 25.8 pg (25-34); MEAN CORPUSCULAR HGB CONC 31.3 g/dl (32-36); MEAN PLATELET VOLUME 9.9 fL (7.4-10.4); MONO % 4.9 %; NEUT % 83.9 %; PLATELET COUNT 331 K/uL (130-400); RED BLOOD COUNT 3.88 M/uL (4.2-5.4); WHITE BLOOD COUNT 11.16 K/uL (4.8-10.8)
[2017-07-22 15:32] LABS: BUN/CREATININE RATIO 11.9 (10-20); CREATININE 1.1 mg/dl (0.60-1.20); POTASSIUM 4.1 mmol/L (3.5-5.1)
[2017-07-22 15:45] VITALS: O2SAT 94
[2017-07-22 15:47] LABS: ALB/GLOB RATIO 1.2 (0.9-2)
[2017-07-22 16:11] VITALS: BP 115/78; PULSE 81; TEMP 36.6; O2SAT 91
[2017-07-22] MEDS: HYDROmorphone INJ 1 MG/ML SYR IV PRN ×2 (18:32→22:56)
[2017-07-22] MEDS: DIAZEPAM 5MG TAB PO SCH (21:23)
[2017-07-22] MEDS: METRONIDAZOLE / NSS 500 MG in PREMIXED NSS 100 ML IV SCH (22:56)
[2017-07-23 01:12] VITALS: BP 132/84; PULSE 83; TEMP 36.7; O2SAT 96
[2017-07-23] MEDS: CIPROFLOXACIN / D5W 400 MG in PREMIXED IN D5W 200 ML IV SCH ×3 (01:35→22:01)
[2017-07-23] MEDS: ONDANSETRON INJ 2 MG/ML 2 ML VIAL IV PRN ×3 (02:35→17:50)
[2017-07-23] MEDS: HYDROmorphone INJ 1 MG/ML SYR IV PRN ×6 (02:37→22:00)
[2017-07-23] MEDS: PROMETHAZINE HCL INJ 25 MG in SODIUM CHLORIDE 0.9% 50ML 50 ML IV PRN ×3 (04:03→21:17)
[2017-07-23] MEDS: METHYLPREDNISOLONE IV 40 MG in SYRINGE 0 ML IV SCH ×3 (06:21→21:15)
[2017-07-23] MEDS: SODIUM CHLORIDE 0.9% 1000ML 1,000 ML IV SCH ×2 (06:21→17:49)
[2017-07-23] MEDS: METRONIDAZOLE / NSS 500 MG in PREMIXED NSS 100 ML IV SCH ×3 (06:22→19:32)
[2017-07-23 07:58] LABS: BUN/CREATININE RATIO 13.6 (10-20); CALCIUM 9.1 mg/dl (8.5-10.1); CREATININE 1.1 mg/dl (0.60-1.20)
[2017-07-23 08:00] LABS: HEMATOCRIT 31.9 % (37-47); MEAN CELL VOLUME 83.9 fL (80-100); MEAN CORPUSCULAR HEMOGLOBIN 26.6 pg (25-34); MEAN CORPUSCULAR HGB CONC 31.7 g/dl (32-36); PLATELET COUNT 333 K/uL (130-400)
[2017-07-23] MEDS: PROPRANOLOL HCL 10 MG TAB PO SCH ×3 (08:00→19:33)
[2017-07-23] MEDS: PAROXETINE 20 MG TAB PO SCH (08:00)
[2017-07-23 08:01] LABS: ALB/GLOB RATIO 1.3 (0.9-2)
[2017-07-23] MEDS: PANTOprazole SOD 40 MG TAB PO SCH ×2 (08:01→19:33)
[2017-07-23] MEDS: PRAVASTATIN SOD 20 MG TAB PO SCH (08:01)
[2017-07-23] MEDS: FAMOTIDINE 20 MG TAB PO SCH ×2 (08:01→19:33)
[2017-07-23 08:12] VITALS: BP 110/73; PULSE 87; TEMP 36.6; O2SAT 91
[2017-07-23 08:57] LABS: COMPLETE YES; IG% 0.9 %; LYMPH % 11.7 %; LYMPH ABS # 1.28 K/uL (1.2-3.4); NEUT % 79.4 %
--- NOTE | 2017-07-23 13:41 | Gastroenterology Progress Note ---
Progress Note Date of Service: Jul 23, 2017 Subjective Pt evaluation today including: conversation w/ patient, conversation w/ family (), physical exam CC f/u abd pain HPI Pt overall since admit feels better. Still some crampy abd pain with full liquid diet. Lactic acid was worse last night but better this am. Good urine output. Review of Systems Respiratory: No shortness of breath Cardiac: No chest pain Medications Current Inpatient Medications Medications (Trade) Dose Ordered Sig/Leslie Route Start Time Stop Time Status Last Admin Dose Admin Ioversol (Optiray 320) 125 ml UD PRN IV 07/21/17 12:00 07/25/17 11:59 Acetaminophen (Tylenol Tab) 650 mg Q4H PRN PO 07/21/17 14:45 08/20/17 14:44 Magnesium Hydroxide (Milk Of Magnesia Susp) 30 ml Q6H PRN PO 07/21/17 14:45 08/20/17 14:44 Ondansetron HCl (Zofran Inj) 4 mg Q6H PRN IV 07/21/17 14:45 08/20/17 14:44 07/23/17 10:03 4 MG Diazepam (Valium Tab) 15 mg HS PO 07/21/17 21:00 08/20/17 20:59 07/22/17 21:23 15 MG Famotidine (Pepcid Tab) 20 mg BID PO 07/21/17 20:00 08/20/17 20:59 07/23/17 08:01 20 MG Pantoprazole Sodium (Protonix Tab) 40 mg BID PO 07/21/17 20:00 08/20/17 20:59 07/23/17 08:01 40 MG Pravastatin Sodium (Pravachol Tab) 20 mg DAILY PO 07/22/17 08:00 08/21/17 08:59 07/23/17 08:01 20 MG Propranolol HCl (Inderal Tab) 10 mg TID PO 07/21/17 20:00 08/20/17 20:59 07/23/17 08:00 10 MG Paroxetine HCl (pAXil TAB) 60 mg QAM PO 07/22/17 08:00 08/21/17 08:59 07/23/17 08:00 60 MG Sodium Chloride 1,000 ml @ 100 mls/hr Q10H IV 07/21/17 14:45 08/20/17 14:44 07/23/17 06:21 100 MLS/HR Methylprednisolone Sodium Succinate 40 mg/Syringe 0.64 ml @ 1.5 mls/min Q8 IV 07/21/17 22:00 08/20/17 21:59 07/23/17 06:21 1.5 MLS/MIN Diphenhydramine HCl (Benadryl Syrup) 25 mg Q4H PRN PO 07/21/17 14:45 08/20/17 14:44 Promethazine HCl 25 mg/Sodium Chloride 51 ml @ 204 mls/hr Q6H PRN IV 07/21/17 14:45 08/20/17 14:44 07/23/17 12:27 204 MLS/HR Miscellaneous (Iv Fluids Completed) 1 ea PRN PRN N/A 07/21/17 15:15 07/21/18 15:14 Hydromorphone HCl (Dilaudid Inj) 1 mg Q3H PRN IV 07/22/17 12:15 08/05/17 12:14 07/23/17 10:03 1 MG Metronidazole 500 mg/Prmx 100 ml @ 100 mls/hr Q8H IV 07/22/17 22:00 08/01/17 21:59 07/23/17 06:22 100 MLS/HR Ciprofloxacin/ Dextrose 400 mg/ Prmx 200 ml @ 100 mls/hr Q12H IV 07/22/17 22:00 08/01/17 21:59 07/23/17 10:03 100 MLS/HR Objective Vital Signs Date Time Temp Pulse Resp B/P (MAP) Pulse Ox O2 Delivery O2 Flow Rate FiO2 07/23/17 08:12 36.6 87 18 110/73 (85) 91 Room Air 07/23/17 07:45 Room Air 07/23/17 01:12 36.7 83 18 132/84 (100) 96 Room Air 07/23/17 00:15 Room Air 07/22/17 16:11 36.6 81 16 115/78 (90) 91 Room Air 07/22/17 15:45 94 Room Air 07/22/17 14:55 81 114/78 (90) Physical Exam General Appearance: WD/WN, no apparent distress Respiratory/Chest: lungs clear, no respiratory distress Cardiovascular: regular rate, rhythm, no edema Abdomen: normal bowel sounds, non tender, soft, no organomegaly Laboratory Results Last 24 Hours Test 07/22/17 14:49 07/22/17 15:00 07/22/17 20:18 07/23/17 07:06 Lactic Acid Level 4.6 mmol/L 5.6 mmol/L 2.7 mmol/L White Blood Count 11.16 K/uL 10.90 K/uL Red Blood Count 3.88 M/uL 3.80 M/uL Hemoglobin 10.0 g/dL 10.1 g/dL Hematocrit 32.0 % 31.9 % Mean Corpuscular Volume 82.5 fL 83.9 fL Mean Corpuscular Hemoglobin 25.8 pg 26.6 pg Mean Corpuscular Hemoglobin Concent 31.3 g/dl 31.7 g/dl Platelet Count 331 K/uL 333 K/uL Mean Platelet Volume 9.9 fL 10.0 fL Neutrophils (%) (Auto) 83.9 % 79.4 % Lymphocytes (%) (Auto) 10.6 % 11.7 % Monocytes (%) (Auto) 4.9 % 8.0 % Eosinophils (%) (Auto) 0.0 % 0.0 % Basophils (%) (Auto) 0.0 % 0.0 % Neutrophils # (Auto) 9.36 K/uL 8.65 K/uL Lymphocytes # (Auto) 1.18 K/uL 1.28 K/uL Monocytes # (Auto) 0.55 K/uL 0.87 K/uL Eosinophils # (Auto) 0.00 K/uL 0.00 K/uL Basophils # (Auto) 0.00 K/uL 0.00 K/uL RDW Standard Deviation 53.8 fL 55.5 fL RDW Coefficient of Variation 17.7 % 17.8 % Immature Granulocyte % (Auto) 0.6 % 0.9 % Immature Granulocyte # (Auto) 0.07 K/uL 0.10 K/uL Sodium Level 142 mmol/L 142 mmol/L Potassium Level 4.1 mmol/L 4.0 mmol/L Chloride Level 108 mmol/L 106 mmol/L Carbon Dioxide Level 23 mmol/L 28 mmol/L Anion Gap 10.0 mmol/L 8.0 mmol/L Blood Urea Nitrogen 13 mg/dl 15 mg/dl Creatinine 1.10 mg/dl 1.10 mg/dl Est Creatinine Clear Calc Drug Dose 63.7 ml/min 63.7 ml/min Estimated GFR () 65.0 65.0 Estimated GFR (Non- 56.1 56.1 BUN/Creatinine Ratio 11.9 13.6 Random Glucose 131 mg/dl 100 mg/dl Calcium Level 9.0 mg/dl 9.1 mg/dl Total Bilirubin 0.2 mg/dl 0.3 mg/dl Aspartate Amino Transf (AST/SGOT) 16 U/L 20 U/L Alanine Aminotransferase (ALT/SGPT) 26 U/L 30 U/L Alkaline Phosphatase 59 U/L 58 U/L Total Protein 6.1 gm/dl 6.2 gm/dl Albumin 3.3 gm/dl 3.5 gm/dl Globulin 2.8 gm/dl 2.7 gm/dl Albumin/Globulin Ratio 1.2 1.3 Nucleated RBC Absolute Count (auto) 0.02 K/uL Nucleated Red Blood Cells % 0.2 % Assessment and Plan crohns--likely flare and continue IV solumedrol I would recommend on DC prednisone 40 mg daily and close f/u with her local GI. Continue full liquids for now. Abd pain--crohns in differential--overall improved diarrhea--crohns in differential but check Cdiff also N/V --could be secondary to crohns elevated WBC--better, elev lactic acid--no indication of ischemic bowel on CT and continues to feel better---discussed with patient and doubt ischemic bowel or other surgical process. Had been well hydrated. Sepsis possible and doing better on abx. Would continue cipro and flagyl for now. Repeat lactic acid in am. [place] to have blood and urine culture prior to abx but will check those now. GERD--acid suppression--protonix bid and pepcid at hs
[2017-07-23 15:36] VITALS: BP 110/63; PULSE 71; TEMP 36.3; O2SAT 91
--- NOTE | 2017-07-23 17:10 | Progress Note ---
Subjective Date of Service: Jul 23, 2017. Subjective Again, long discussion regarding her Crohn's disease was on Remicade, then Humira but developed antibodies, most recently changed to Entyrio she feels the Entyrio is not working, has been tapering off of Prednisone, started at 60mg most recently on 20mg as outpatient with worsening symptoms pain is controlled somewhat with Morphine, patient requesting Dilaudid because that's what works best for her. patient reports that when she has difficulty with an exacerbation, she has to be on IV meds. Patient was tallking to Gastro while I was seeing patient, Problem List Medical Problems: (1) Exacerbation of Crohn's disease Status: Acute Review of Systems Constitutional: No fever Respiratory: No cough, No sputum Cardiac: No chest pain, No orthopnea Abdomen: + pain, + nausea Musculoskeletal: No joint pain Neurologic: No memory loss, No paralysis Psychiatric: No depression symptoms, No anhedonism Heme: No abnormal bleeding/bruising Endo: No fatigue Skin: No rash, No itch All Other Systems: Reviewed and Negative Medications Current Inpatient Medications Medications (Trade) Dose Ordered Sig/Leslie Route Start Time Stop Time Status Last Admin Dose Admin Ioversol (Optiray 320) 125 ml UD PRN IV 07/21/17 12:00 07/25/17 11:59 Acetaminophen (Tylenol Tab) 650 mg Q4H PRN PO 07/21/17 14:45 08/20/17 14:44 Magnesium Hydroxide (Milk Of Magnesia Susp) 30 ml Q6H PRN PO 07/21/17 14:45 08/20/17 14:44 Ondansetron HCl (Zofran Inj) 4 mg Q6H PRN IV 07/21/17 14:45 08/20/17 14:44 07/23/17 17:50 4 MG Diazepam (Valium Tab) 15 mg HS PO 07/21/17 21:00 08/20/17 20:59 07/23/17 21:15 15 MG Famotidine (Pepcid Tab) 20 mg BID PO 07/21/17 20:00 08/20/17 20:59 07/23/17 19:33 20 MG Pantoprazole Sodium (Protonix Tab) 40 mg BID PO 07/21/17 20:00 08/20/17 20:59 07/23/17 19:33 40 MG Pravastatin Sodium (Pravachol Tab) 20 mg DAILY PO 07/22/17 08:00 08/21/17 08:59 07/23/17 08:01 20 MG Propranolol HCl (Inderal Tab) 10 mg TID PO 07/21/17 20:00 08/20/17 20:59 07/23/17 19:33 10 MG Paroxetine HCl (pAXil TAB) 60 mg QAM PO 07/22/17 08:00 08/21/17 08:59 07/23/17 08:00 60 MG Sodium Chloride 1,000 ml @ 100 mls/hr Q10H IV 07/21/17 14:45 08/20/17 14:44 07/24/17 01:43 100 MLS/HR Methylprednisolone Sodium Succinate 40 mg/Syringe 0.64 ml @ 1.5 mls/min Q8 IV 07/21/17 22:00 08/20/17 21:59 07/24/17 05:44 1.5 MLS/MIN Diphenhydramine HCl (Benadryl Syrup) 25 mg Q4H PRN PO 07/21/17 14:45 08/20/17 14:44 Promethazine HCl 25 mg/Sodium Chloride 51 ml @ 204 mls/hr Q6H PRN IV 07/21/17 14:45 08/20/17 14:44 07/23/17 21:17 204 MLS/HR Miscellaneous (Iv Fluids Completed) 1 ea PRN PRN N/A 07/21/17 15:15 07/21/18 15:14 Hydromorphone HCl (Dilaudid Inj) 1 mg Q3H PRN IV 07/22/17 12:15 08/05/17 12:14 07/24/17 03:57 1 MG Ciprofloxacin/ Dextrose 400 mg/ Prmx 200 ml @ 100 mls/hr Q12H IV 07/22/17 22:00 08/01/17 21:59 07/23/17 22:01 100 MLS/HR Metronidazole 500 mg/Prmx 100 ml @ 100 mls/hr Q8H IV 07/23/17 20:00 08/02/17 19:59 07/24/17 03:57 100 MLS/HR Objective Vital Signs Date Time Temp Pulse Resp B/P (MAP) Pulse Ox O2 Delivery O2 Flow Rate FiO2 07/23/17 16:10 Room Air 07/23/17 15:36 36.3 71 16 110/63 (79) 91 Room Air 07/23/17 08:12 36.6 87 18 110/73 (85) 91 Room Air 07/23/17 07:45 Room Air 07/23/17 01:12 36.7 83 18 132/84 (100) 96 Room Air 07/23/17 00:15 Room Air Physical Exam Comments: General Appearance: WD/WN, no apparent distress ENT: + pertinent finding (engel faces from Prednisone) Neck: supple, no adenopathy, no JVD, trachea midline Respiratory/Chest: chest non-tender, lungs clear, normal breath sounds, no respiratory distress, no accessory muscle use Cardiovascular: regular rate, rhythm, no edema, no gallop, no JVD, no murmur Abdomen: normal bowel sounds, soft, no organomegaly, + tenderness (LLQ, no rebound or rigidity) Extremities: normal range of motion, non-tender, normal inspection, no pedal edema, no calf tenderness 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, no motor/sensory deficits, alert, normal mood/affect, oriented x 3 Skin: normal color, warm/dry, no rash Laboratory Results Last 24 Hours Test 07/22/17 20:18 07/23/17 07:06 Lactic Acid Level 5.6 mmol/L 2.7 mmol/L White Blood Count 10.90 K/uL Red Blood Count 3.80 M/uL Hemoglobin 10.1 g/dL Hematocrit 31.9 % Mean Corpuscular Volume 83.9 fL Mean Corpuscular Hemoglobin 26.6 pg Mean Corpuscular Hemoglobin Concent 31.7 g/dl Platelet Count 333 K/uL Mean Platelet Volume 10.0 fL Neutrophils (%) (Auto) 79.4 % Lymphocytes (%) (Auto) 11.7 % Monocytes (%) (Auto) 8.0 % Eosinophils (%) (Auto) 0.0 % Basophils (%) (Auto) 0.0 % Neutrophils # (Auto) 8.65 K/uL Lymphocytes # (Auto) 1.28 K/uL Monocytes # (Auto) 0.87 K/uL Eosinophils # (Auto) 0.00 K/uL Basophils # (Auto) 0.00 K/uL RDW Standard Deviation 55.5 fL RDW Coefficient of Variation 17.8 % Immature Granulocyte % (Auto) 0.9 % Immature Granulocyte # (Auto) 0.10 K/uL Nucleated RBC Absolute Count (auto) 0.02 K/uL Nucleated Red Blood Cells % 0.2 % Sodium Level 142 mmol/L Potassium Level 4.0 mmol/L Chloride Level 106 mmol/L Carbon Dioxide Level 28 mmol/L Anion Gap 8.0 mmol/L Blood Urea Nitrogen 15 mg/dl Creatinine 1.10 mg/dl Est Creatinine Clear Calc Drug Dose 63.7 ml/min Estimated GFR () 65.0 Estimated GFR (Non- 56.1 BUN/Creatinine Ratio 13.6 Random Glucose 100 mg/dl Calcium Level 9.1 mg/dl Total Bilirubin 0.3 mg/dl Aspartate Amino Transf (AST/SGOT) 20 U/L Alanine Aminotransferase (ALT/SGPT) 30 U/L Alkaline Phosphatase 58 U/L Total Protein 6.2 gm/dl Albumin 3.5 gm/dl Globulin 2.7 gm/dl Albumin/Globulin Ratio 1.3 Assessment and Plan 56 y/o F who was admitted on 07/21 for Crohn's flare Crohn's flare: feeling better on Solu Medrol 40mg IV q8 requesting Dilaudid IV for pain control, Morphine does not work very well advance to full liquid diet consult [facility] GI for recommendations "likely flare and continue IV solumedrol I would recommend on DC prednisone 40 mg daily and close f/u with her local GI. Continue full liquids for now." Lactic acid has been improving. will reorder tomorrow. will continue with antibiotics as per Gastro. Goal is to change to PO meds tomorrow for discharge planning on Monday if all goes well. Migraines: no headache currently Anxiety: continue home Valium for sleep GERD: continue home meds Other: Full code Continued [facility] stay due to: multiple IV medications needed Discharge planning: home
[2017-07-23] MEDS: DIAZEPAM 5MG TAB PO SCH (21:15)
[2017-07-23 23:38] VITALS: BP 133/86; PULSE 79; TEMP 36.7; O2SAT 90
[2017-07-24] MEDS: SODIUM CHLORIDE 0.9% 1000ML 1,000 ML IV SCH ×3 (01:43→22:12)
[2017-07-24] MEDS: METRONIDAZOLE / NSS 500 MG in PREMIXED NSS 100 ML IV SCH ×3 (03:57→19:33)
[2017-07-24] MEDS: HYDROmorphone INJ 1 MG/ML SYR IV PRN ×5 (03:57→19:34)
[2017-07-24] MEDS: METHYLPREDNISOLONE IV 40 MG in SYRINGE 0 ML IV SCH ×3 (05:44→21:16)
[2017-07-24 06:18] LABS: BASO % 0.1 %; BASO ABS # 0.01 K/uL (0-0.2); COMPLETE YES; HEMATOCRIT 29.8 % (37-47); LYMPH % 9.7 %; LYMPH ABS # 1.01 K/uL (1.2-3.4); MEAN CELL VOLUME 83.5 fL (80-100); MEAN CORPUSCULAR HEMOGLOBIN 27.2 pg (25-34); MEAN CORPUSCULAR HGB CONC 32.6 g/dl (32-36); MEAN PLATELET VOLUME 9.3 fL (7.4-10.4); MONO % 7.2 %; PLATELET COUNT 298 K/uL (130-400); RED BLOOD COUNT 3.57 M/uL (4.2-5.4); WHITE BLOOD COUNT 10.39 K/uL (4.8-10.8)
[2017-07-24 06:50] LABS: BUN/CREATININE RATIO 14.6 (10-20); CALCIUM 8.7 mg/dl (8.5-10.1); CREATININE 1.1 mg/dl (0.60-1.20); POTASSIUM 3.8 mmol/L (3.5-5.1)
[2017-07-24 06:53] LABS: ALB/GLOB RATIO 1.2 (0.9-2)
[2017-07-24] MEDS: PANTOprazole SOD 40 MG TAB PO SCH ×2 (07:20→19:42)
[2017-07-24] MEDS: PAROXETINE 20 MG TAB PO SCH (07:20)
[2017-07-24] MEDS: FAMOTIDINE 20 MG TAB PO SCH ×2 (07:21→19:42)
[2017-07-24] MEDS: PROPRANOLOL HCL 10 MG TAB PO SCH ×3 (07:21→19:42)
[2017-07-24] MEDS: PRAVASTATIN SOD 20 MG TAB PO SCH (07:21)
[2017-07-24 08:05] VITALS: BP 124/77; PULSE 74; TEMP 36.4; O2SAT 93
[2017-07-24] MEDS: PROMETHAZINE HCL INJ 25 MG in SODIUM CHLORIDE 0.9% 50ML 50 ML IV PRN ×2 (10:28→18:50)
[2017-07-24] MEDS: CIPROFLOXACIN / D5W 400 MG in PREMIXED IN D5W 200 ML IV SCH ×2 (11:38→21:16)
--- NOTE | 2017-07-24 12:14 | Gastroenterology Progress Note ---
Progress Note Date of Service: Jul 24, 2017 Subjective Pt evaluation today including: conversation w/ patient, physical exam, chart review, lab review, review of studies, review of inpatient medication list CC f/u crohns, abd pain HPI Pt states still crampy with eating full liquids but think overall feeling better. She would like to try some advancement of diet like bread. However, per nursing she is taking dilaudid on scheduled basis.No BMs since admit. Some nausea but no vomiting Review of Systems Respiratory: No shortness of breath Cardiac: No chest pain Medications Current Inpatient Medications Medications (Trade) Dose Ordered Sig/Leslie Route Start Time Stop Time Status Last Admin Dose Admin Ioversol (Optiray 320) 125 ml UD PRN IV 07/21/17 12:00 07/25/17 11:59 Acetaminophen (Tylenol Tab) 650 mg Q4H PRN PO 07/21/17 14:45 08/20/17 14:44 Magnesium Hydroxide (Milk Of Magnesia Susp) 30 ml Q6H PRN PO 07/21/17 14:45 08/20/17 14:44 Ondansetron HCl (Zofran Inj) 4 mg Q6H PRN IV 07/21/17 14:45 08/20/17 14:44 07/23/17 17:50 4 MG Diazepam (Valium Tab) 15 mg HS PO 07/21/17 21:00 08/20/17 20:59 07/23/17 21:15 15 MG Famotidine (Pepcid Tab) 20 mg BID PO 07/21/17 20:00 08/20/17 20:59 07/24/17 07:21 20 MG Pantoprazole Sodium (Protonix Tab) 40 mg BID PO 07/21/17 20:00 08/20/17 20:59 07/24/17 07:20 40 MG Pravastatin Sodium (Pravachol Tab) 20 mg DAILY PO 07/22/17 08:00 08/21/17 08:59 07/24/17 07:21 20 MG Propranolol HCl (Inderal Tab) 10 mg TID PO 07/21/17 20:00 08/20/17 20:59 07/24/17 07:21 10 MG Paroxetine HCl (pAXil TAB) 60 mg QAM PO 07/22/17 08:00 08/21/17 08:59 07/24/17 07:20 60 MG Sodium Chloride 1,000 ml @ 100 mls/hr Q10H IV 07/21/17 14:45 08/20/17 14:44 07/24/17 01:43 100 MLS/HR Methylprednisolone Sodium Succinate 40 mg/Syringe 0.64 ml @ 1.5 mls/min Q8 IV 07/21/17 22:00 08/20/17 21:59 07/24/17 05:44 1.5 MLS/MIN Diphenhydramine HCl (Benadryl Syrup) 25 mg Q4H PRN PO 07/21/17 14:45 08/20/17 14:44 Promethazine HCl 25 mg/Sodium Chloride 51 ml @ 204 mls/hr Q6H PRN IV 07/21/17 14:45 08/20/17 14:44 07/24/17 10:28 204 MLS/HR Miscellaneous (Iv Fluids Completed) 1 ea PRN PRN N/A 07/21/17 15:15 07/21/18 15:14 Hydromorphone HCl (Dilaudid Inj) 1 mg Q3H PRN IV 07/22/17 12:15 08/05/17 12:14 07/24/17 10:37 1 MG Ciprofloxacin/ Dextrose 400 mg/ Prmx 200 ml @ 100 mls/hr Q12H IV 07/22/17 22:00 08/01/17 21:59 07/24/17 11:38 100 MLS/HR Metronidazole 500 mg/Prmx 100 ml @ 100 mls/hr Q8H IV 07/23/17 20:00 08/02/17 19:59 07/24/17 03:57 100 MLS/HR Objective Vital Signs Date Time Temp Pulse Resp B/P (MAP) Pulse Ox O2 Delivery O2 Flow Rate FiO2 07/24/17 10:01 Room Air 07/24/17 08:05 36.4 74 18 124/77 (93) 93 Room Air 07/24/17 00:47 Room Air 07/23/17 23:38 36.7 79 18 133/86 (102) 90 Room Air 07/23/17 20:30 Room Air 07/23/17 16:10 Room Air 07/23/17 15:36 36.3 71 16 110/63 (79) 91 Room Air Physical Exam General Appearance: WD/WN, no apparent distress Respiratory/Chest: lungs clear, no respiratory distress Cardiovascular: regular rate, rhythm, no edema Abdomen: normal bowel sounds, soft, no organomegaly, no pulsatile mass, + pertinent finding (no guarding nor rebound) Laboratory Results Last 24 Hours Test 07/24/17 05:58 White Blood Count 10.39 K/uL Red Blood Count 3.57 M/uL Hemoglobin 9.7 g/dL Hematocrit 29.8 % Mean Corpuscular Volume 83.5 fL Mean Corpuscular Hemoglobin 27.2 pg Mean Corpuscular Hemoglobin Concent 32.6 g/dl Platelet Count 298 K/uL Mean Platelet Volume 9.3 fL Neutrophils (%) (Auto) 82.0 % Lymphocytes (%) (Auto) 9.7 % Monocytes (%) (Auto) 7.2 % Eosinophils (%) (Auto) 0.0 % Basophils (%) (Auto) 0.1 % Neutrophils # (Auto) 8.52 K/uL Lymphocytes # (Auto) 1.01 K/uL Monocytes # (Auto) 0.75 K/uL Eosinophils # (Auto) 0.00 K/uL Basophils # (Auto) 0.01 K/uL RDW Standard Deviation 55.5 fL RDW Coefficient of Variation 17.9 % Immature Granulocyte % (Auto) 1.0 % Immature Granulocyte # (Auto) 0.10 K/uL Nucleated RBC Absolute Count (auto) 0.04 K/uL Nucleated Red Blood Cells % 0.4 % Sodium Level 143 mmol/L Potassium Level 3.8 mmol/L Chloride Level 107 mmol/L Carbon Dioxide Level 25 mmol/L Anion Gap 11.0 mmol/L Blood Urea Nitrogen 16 mg/dl Creatinine 1.10 mg/dl Est Creatinine Clear Calc Drug Dose 63.7 ml/min Estimated GFR () 65.0 Estimated GFR (Non- 56.1 BUN/Creatinine Ratio 14.6 Random Glucose 106 mg/dl Lactic Acid Level 3.5 mmol/L Calcium Level 8.7 mg/dl Total Bilirubin 0.2 mg/dl Aspartate Amino Transf (AST/SGOT) 11 U/L Alanine Aminotransferase (ALT/SGPT) 30 U/L Alkaline Phosphatase 56 U/L Total Protein 6.2 gm/dl Albumin 3.4 gm/dl Globulin 2.8 gm/dl Albumin/Globulin Ratio 1.2 Assessment and Plan crohns--likely flare and continue IV solumedrol I would recommend on DC prednisone 40 mg daily and close f/u with her local GI. elev lactic acid--increased today despite adequate urine output and continued abx, urine and blood cultures pending, Check CXR for other source of infection but I am concerned about small focus of bowel ischemia causing this. Spoke with radiologist ralph looked at initial CT and states regular CT and CTA would not add much as the meserteric vessels appear open. He recommend CT enterography which will be ordered. Abd pain--crohns in differential--overall improved but still needing dilaudid diarrhea--crohns in differential but check Cdiff also N/V --could be secondary to crohns elevated WBC--better, GERD--acid suppression--protonix bid and pepcid at hs
[2017-07-24] MEDS ORDERED: OPTIRAY 320 IV PRN (12:30)
--- NOTE | 2017-07-24 15:23 | DIAGNOSTIC IMAGING REPORT ---
CT ENTEROGRAPHY CLINICAL HISTORY: Crohn's disease. Elevated lactic acid. Clinical concern for ischemic bowel. COMPARISON STUDY: Abdominal CT dated 07/21/2017. TECHNIQUE: The small bowel was prepped and the patient drink negative enteric contrast. Following the IV administration of 93 cc of Optiray 320, CT enterography of the abdomen and pelvis is performed from the lung bases to the proximal femora. Images are reviewed in the axial, sagittal, and coronal planes. IV contrast was administered without complication. A dose lowering technique was utilized adhering to the principles of ALARA. CT DOSE: 1036.37 mGycm FINDINGS: Lung bases: The heart is normal in size and without pericardial effusion. The lung bases are clear noting bibasilar subsegmental atelectasis. There is a tiny hiatal hernia. Liver: The contrast-enhanced liver is normal in size, contour, and attenuation. There is no intrahepatic biliary ductal dilatation. The hepatic veins and portal veins are patent. Gallbladder: Calcified gallstones are identified. Spleen: Normal in size and attenuation. Pancreas: Moderately atrophic and grossly unremarkable. Adrenal glands: Unremarkable. Kidneys: The contrast enhanced kidneys demonstrate cortical atrophy and are without hydronephrosis. The kidneys enhance symmetrically. Abdominal vasculature: The abdominal aorta is normal in course and caliber noting minimal atherosclerotic calcification. Bowel: No thick walled or hyperemic small bowel loops are identified. There is no inflammatory change identified involving the small bowel loops. No pneumatosis intestinalis or portal venous gas is seen. Mild some mucosal fat deposition involving the distal/terminal ileum is nonspecific and may be related to chronic inflammation. The superior mesenteric artery, and inferior mesenteric artery, and the celiac trunk are widely patent. There is no evidence of stricture or fistula. No abscess is seen. There is mild colonic fecal retention. No bowel obstruction is seen. There is mild colonic diverticulosis without CT evidence of acute diverticulitis. The appendix is well-visualized and normal. Peritoneum: There is no intraperitoneal free air or abdominal ascites. Lymphadenopathy: None. Pelvic viscera: The bladder, uterus, and adnexa are normal as visualized. Skeletal structures: The skeletal structures are osteopenic. There is mild lumbosacral spondylosis. A large posterior disc bulge is suggested at L3-L4. No lytic or blastic lesions are seen. IMPRESSION: 1. There are no acute infectious or inflammatory findings in the abdomen or pelvis. 2. There is no CT evidence of active Crohn's disease. No abnormal bowel loops are identified and there is no bowel obstruction. 3. Cholelithiasis. 4. Mild colonic diverticulosis without CT evidence of acute diverticulitis. 5. Additional findings as above. Electronically signed by: Richmond Sultana M.D. 07/24/2017 3:22 PM Dictated Date/Time: 07/24/2017 3:14 PM
[2017-07-24] MEDS: ONDANSETRON INJ 2 MG/ML 2 ML VIAL IV PRN (15:30)
[2017-07-24 15:35] VITALS: BP 139/93; PULSE 77; TEMP 36.6; O2SAT 91
--- NOTE | 2017-07-24 16:49 | DIAGNOSTIC IMAGING REPORT ---
CHEST 2 VIEWS ROUTINE HISTORY: elevated lactic acid r/o pneumonia as cause COMPARISON: Chest 07/19/2017. FINDINGS: No pneumothorax. No pleural effusions. The cardiac silhouette is mildly enlarged. A few bibasilar linear densities favor subsegmental atelectasis. No focal lung consolidations to suggest pneumonia. No evidence for pulmonary edema. Old, healed right-sided rib fractures. IMPRESSION: 1. No focal lung consolidations to suggest pneumonia. 2. Mild cardiomegaly. 3. Bibasilar linear densities favor subsegmental atelectasis. Electronically signed by: Valdemar Diallo M.D. 07/24/2017 4:48 PM Dictated Date/Time: 07/24/2017 4:46 PM
[2017-07-24] MEDS ORDERED: NURSING VERBAL MED ORDER ONE (18:30)
[2017-07-24] MEDS: DIAZEPAM 5MG TAB PO SCH (21:15)
[2017-07-25 00:18] VITALS: BP 119/79; PULSE 76; TEMP 36.6; O2SAT 92
[2017-07-25] MEDS: OXYCODONE/ACETAMINOPHEN 10/325MG TAB PO PRN ×2 (01:21→05:39)
[2017-07-25] MEDS: PROMETHAZINE HCL INJ 25 MG in SODIUM CHLORIDE 0.9% 50ML 50 ML IV PRN (02:05)
[2017-07-25] MEDS: METRONIDAZOLE / NSS 500 MG in PREMIXED NSS 100 ML IV SCH ×2 (03:55→12:25)
[2017-07-25] MEDS: METHYLPREDNISOLONE IV 40 MG in SYRINGE 0 ML IV SCH ×2 (05:34→14:00)
[2017-07-25] MEDS: ONDANSETRON INJ 2 MG/ML 2 ML VIAL IV PRN (05:34)
--- NOTE | 2017-07-25 06:28 | Progress Note ---
Subjective Date of Service: Jul 24, 2017. Subjective Pt evaluation today including: conversation w/ patient, physical exam, chart review, lab review, review of studies Discussed with patient. Is concerned about her lactic acid being higher. Patient also is worried about her discharge medications and what will be her maintenance medications. Patient reports that she continues to have abdominal pain, and today had liquid stool. She has not had a bowel movement in 3 days, however, she did drink PO contrast today as per nurse. Problem List Medical Problems: (1) Exacerbation of Crohn's disease Status: Acute Review of Systems Constitutional: No fever, No chills Respiratory: No cough, No sputum Abdomen: + pain, + nausea, + diarrhea, No vomiting Musculoskeletal: No joint pain Female : No dysuria, No urinary frequency Neurologic: No memory loss, No paralysis Heme: No abnormal bleeding/bruising Endo: No fatigue Skin: No rash, No itch All Other Systems: Reviewed and Negative Medications Current Inpatient Medications Medications (Trade) Dose Ordered Sig/Leslie Route Start Time Stop Time Status Last Admin Dose Admin Ioversol (Optiray 320) 125 ml UD PRN IV 07/21/17 12:00 07/25/17 11:59 Acetaminophen (Tylenol Tab) 650 mg Q4H PRN PO 07/21/17 14:45 08/20/17 14:44 Magnesium Hydroxide (Milk Of Magnesia Susp) 30 ml Q6H PRN PO 07/21/17 14:45 08/20/17 14:44 Ondansetron HCl (Zofran Inj) 4 mg Q6H PRN IV 07/21/17 14:45 08/20/17 14:44 07/25/17 05:34 4 MG Diazepam (Valium Tab) 15 mg HS PO 07/21/17 21:00 08/20/17 20:59 07/24/17 21:15 15 MG Famotidine (Pepcid Tab) 20 mg BID PO 07/21/17 20:00 08/20/17 20:59 07/24/17 19:42 20 MG Pantoprazole Sodium (Protonix Tab) 40 mg BID PO 07/21/17 20:00 08/20/17 20:59 07/24/17 19:42 40 MG Pravastatin Sodium (Pravachol Tab) 20 mg DAILY PO 07/22/17 08:00 08/21/17 08:59 07/24/17 07:21 20 MG Propranolol HCl (Inderal Tab) 10 mg TID PO 07/21/17 20:00 08/20/17 20:59 07/24/17 19:42 10 MG Paroxetine HCl (pAXil TAB) 60 mg QAM PO 07/22/17 08:00 08/21/17 08:59 07/24/17 07:20 60 MG Sodium Chloride 1,000 ml @ 100 mls/hr Q10H IV 07/21/17 14:45 08/20/17 14:44 07/24/17 22:12 100 MLS/HR Methylprednisolone Sodium Succinate 40 mg/Syringe 0.64 ml @ 1.5 mls/min Q8 IV 07/21/17 22:00 08/20/17 21:59 07/25/17 05:34 1.5 MLS/MIN Diphenhydramine HCl (Benadryl Syrup) 25 mg Q4H PRN PO 07/21/17 14:45 08/20/17 14:44 Promethazine HCl 25 mg/Sodium Chloride 51 ml @ 204 mls/hr Q6H PRN IV 07/21/17 14:45 08/20/17 14:44 07/25/17 02:05 204 MLS/HR Miscellaneous (Iv Fluids Completed) 1 ea PRN PRN N/A 07/21/17 15:15 07/21/18 15:14 Ciprofloxacin/ Dextrose 400 mg/ Prmx 200 ml @ 100 mls/hr Q12H IV 07/22/17 22:00 08/01/17 21:59 07/24/17 21:16 100 MLS/HR Metronidazole 500 mg/Prmx 100 ml @ 100 mls/hr Q8H IV 07/23/17 20:00 08/02/17 19:59 07/25/17 03:55 100 MLS/HR Ioversol (Optiray 320) 125 ml UD PRN IV 07/24/17 12:30 07/28/17 12:29 Oxycodone/ Acetaminophen (Percocet 10-325MG Tab) 1 tab Q4H PRN PO 07/24/17 18:15 08/07/17 18:14 07/25/17 05:39 1 TAB Objective Vital Signs Date Time Temp Pulse Resp B/P (MAP) Pulse Ox O2 Delivery O2 Flow Rate FiO2 07/25/17 00:37 Room Air 07/25/17 00:18 36.6 76 18 119/79 (92) 92 Room Air 07/24/17 20:31 Room Air 07/24/17 16:15 Room Air 07/24/17 15:35 36.6 77 18 139/93 (108) 91 Room Air 07/24/17 10:01 Room Air 07/24/17 08:05 36.4 74 18 124/77 (93) 93 Room Air Physical Exam Comments: General Appearance: WD/WN, no apparent distress ENT: + pertinent finding (engel faces from Prednisone) Neck: supple, no adenopathy, no JVD, trachea midline Respiratory/Chest: chest non-tender, lungs clear, normal breath sounds, no respiratory distress, no accessory muscle use Cardiovascular: regular rate, rhythm, no edema, no gallop, no JVD, no murmur Abdomen: normal bowel sounds, soft, no organomegaly, + tenderness (LLQ, no rebound or rigidity) Extremities: normal range of motion, non-tender, normal inspection, no pedal edema, no calf tenderness 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 advance to full liquid diet consult [facility] GI for recommendations "likely flare and continue IV solumedrol I would recommend on DC prednisone 40 mg daily and close f/u with her local GI. Continue full liquids for now." Lactic acid has been increased.. will continue with antibiotics as per Gastro. Goal is to change to PO meds tomorrow for discharge planning on Monday if all goes well. Lactic acidosis. Lactic acid increased to around 3. Patient does not have any other signs of acid base disorder. Ischemic bowel has been ruled out today. I am not too concerned with this finding and explained to patient that we will treat her clinically as ichemic bowel has been ruled. A possiblity of her lactic acidosis may be D-lactic acid from malabsorption from her crohn's. will d/w gastro. Migraines: no headache currently Anxiety: continue home Valium for sleep GERD: continue home meds Other: Full code Continued [facility] stay due to: multiple IV medications needed Discharge planning: home
[2017-07-25 06:58] LABS: COMPLETE YES; HEMATOCRIT 28.9 % (37-47); IG% 0.9 %; LYMPH % 15.3 %; LYMPH ABS # 1.26 K/uL (1.2-3.4); MEAN CELL VOLUME 83.8 fL (80-100); MEAN CORPUSCULAR HEMOGLOBIN 26.7 pg (25-34); MEAN CORPUSCULAR HGB CONC 31.8 g/dl (32-36); MEAN PLATELET VOLUME 9.4 fL (7.4-10.4); MONO % 0.4 %; NEUT % 83.4 %; PLATELET COUNT 275 K/uL (130-400); RED BLOOD COUNT 3.45 M/uL (4.2-5.4); WHITE BLOOD COUNT 8.23 K/uL (4.8-10.8)
[2017-07-25 07:36] LABS: BUN/CREATININE RATIO 13.3 (10-20); CALCIUM 8.6 mg/dl (8.5-10.1); CREATININE 1.2 mg/dl (0.60-1.20); POTASSIUM 3.8 mmol/L (3.5-5.1)
[2017-07-25 07:39] LABS: ALB/GLOB RATIO 1.1 (0.9-2)
[2017-07-25 08:07] VITALS: BP 115/72; PULSE 70; TEMP 36.5; O2SAT 95
[2017-07-25] MEDS: PRAVASTATIN SOD 20 MG TAB PO SCH (08:14)
[2017-07-25] MEDS: PANTOprazole SOD 40 MG TAB PO SCH ×2 (08:14→21:25)
[2017-07-25] MEDS: PROPRANOLOL HCL 10 MG TAB PO SCH ×3 (08:14→21:26)
[2017-07-25] MEDS: FAMOTIDINE 20 MG TAB PO SCH ×2 (08:15→21:26)
[2017-07-25] MEDS: PAROXETINE 20 MG TAB PO SCH (08:15)
[2017-07-25] MEDS: SODIUM CHLORIDE 0.9% 1000ML 1,000 ML IV SCH ×2 (08:16→18:34)
[2017-07-25] MEDS ORDERED: PROMETHAZINE HCL 25 MG TAB ONE (10:25)
[2017-07-25] MEDS: CIPROFLOXACIN / D5W 400 MG in PREMIXED IN D5W 200 ML IV SCH (10:29)
[2017-07-25] MEDS ORDERED: NURSING VERBAL MED ORDER ONE ×3 (10:45→14:15)
[2017-07-25] MEDS: PROMETHAZINE HCL 25 MG SUPP PR PRN (11:27)
--- NOTE | 2017-07-25 12:27 | Progress Note ---
Subjective Date of Service: Jul 25, 2017. Subjective Pt evaluation today including: conversation w/ patient, conversation w/ family , physical exam, chart review, review of studies 56 yo female in hospital for flair up of crohns. Patient reports to be having high amounts of anxiety, given that she is unsure why she has a lactate lab that is elevated. Patient reports that she is ok with having her steroids changed to PO steroids, however, she is requesting her pain medication to be given today IV. Patient and state that they discussed with Dr. Manley over 30 minutes, and he will talk with her home GI specialist. Patient states that she has some liquid stools today and has been having worsening abd. pain. Problem List Medical Problems: (1) Exacerbation of Crohn's disease Status: Acute Review of Systems Constitutional: No fever, No chills Eyes: No worsening of vision, No eye pain Respiratory: No cough, No sputum Cardiac: No chest pain, No orthopnea Abdomen: + pain, + nausea Musculoskeletal: No joint pain Female : No dysuria, No urinary frequency Heme: No abnormal bleeding/bruising Skin: No rash, No itch All Other Systems: Reviewed and Negative Medications Current Inpatient Medications Medications (Trade) Dose Ordered Sig/Leslie Route Start Time Stop Time Status Last Admin Dose Admin Acetaminophen (Tylenol Tab) 650 mg Q4H PRN PO 07/21/17 14:45 08/20/17 14:44 Magnesium Hydroxide (Milk Of Magnesia Susp) 30 ml Q6H PRN PO 07/21/17 14:45 08/20/17 14:44 Diazepam (Valium Tab) 15 mg HS PO 07/21/17 21:00 08/20/17 20:59 07/26/17 00:10 15 MG Famotidine (Pepcid Tab) 20 mg BID PO 07/21/17 20:00 08/20/17 20:59 07/25/17 21:26 20 MG Pantoprazole Sodium (Protonix Tab) 40 mg BID PO 07/21/17 20:00 08/20/17 20:59 07/25/17 21:25 40 MG Pravastatin Sodium (Pravachol Tab) 20 mg DAILY PO 07/22/17 08:00 08/21/17 08:59 07/25/17 08:14 20 MG Propranolol HCl (Inderal Tab) 10 mg TID PO 07/21/17 20:00 08/20/17 20:59 07/25/17 21:26 10 MG Paroxetine HCl (pAXil TAB) 60 mg QAM PO 07/22/17 08:00 08/21/17 08:59 07/25/17 08:15 60 MG Sodium Chloride 1,000 ml @ 100 mls/hr Q10H IV 07/21/17 14:45 08/20/17 14:44 07/26/17 04:37 100 MLS/HR Diphenhydramine HCl (Benadryl Syrup) 25 mg Q4H PRN PO 07/21/17 14:45 08/20/17 14:44 Miscellaneous (Iv Fluids Completed) 1 ea PRN PRN N/A 07/21/17 15:15 07/21/18 15:14 Ioversol (Optiray 320) 125 ml UD PRN IV 07/24/17 12:30 07/28/17 12:29 Oxycodone/ Acetaminophen (Percocet 10-325MG Tab) 1 tab Q4H PRN PO 07/24/17 18:15 08/07/17 18:14 07/25/17 05:39 1 TAB Promethazine HCl (Phenergan Supp) 25 mg Q6H PRN [place] 07/25/17 11:15 08/24/17 11:14 07/25/17 11:27 25 MG Ondansetron HCl (Zofran Odt) 8 mg Q6H PRN PO 07/25/17 14:00 08/24/17 13:59 07/25/17 14:34 8 MG Promethazine HCl 25 mg/Sodium Chloride 51 ml @ 204 mls/hr Q6H PRN IV 07/25/17 20:45 08/24/17 20:44 07/26/17 00:10 204 MLS/HR Promethazine HCl (Phenergan Tab) 25 mg Q6H PRN PO 07/25/17 20:45 08/24/17 20:44 Hydromorphone HCl (Dilaudid Inj) 1 mg Q4H PRN IV 07/25/17 21:00 08/08/17 20:59 07/26/17 06:00 1 MG Objective Vital Signs Date Time Temp Pulse Resp B/P (MAP) Pulse Ox O2 Delivery O2 Flow Rate FiO2 07/25/17 09:12 Room Air 07/25/17 08:07 36.5 70 18 115/72 (86) 95 Room Air 07/25/17 00:37 Room Air 07/25/17 00:18 36.6 76 18 119/79 (92) 92 Room Air 07/24/17 20:31 Room Air 07/24/17 16:15 Room Air 07/24/17 15:35 36.6 77 18 139/93 (108) 91 Room Air Physical Exam Comments: General Appearance: WD/WN, no apparent distress ENT: + pertinent finding (engel faces from Prednisone) Neck: supple, no adenopathy, no JVD, trachea midline Respiratory/Chest: chest non-tender, lungs clear, normal breath sounds, no respiratory distress, no accessory muscle use Cardiovascular: regular rate, rhythm, no edema, no gallop, no JVD, no murmur Abdomen: normal bowel sounds, soft, no organomegaly, + tenderness (LLQ, no rebound or rigidity) Extremities: normal range of motion, non-tender, normal inspection, no pedal edema, no calf tenderness Neurologic/Psychiatric: teradata architect II-XII nml as tested, no motor/sensory deficits, alert, normal mood/affect, oriented x 3 Skin: normal color, warm/dry, no rash Laboratory Results Last 24 Hours Test 07/25/17 06:51 White Blood Count 8.23 K/uL Red Blood Count 3.45 M/uL Hemoglobin 9.2 g/dL Hematocrit 28.9 % Mean Corpuscular Volume 83.8 fL Mean Corpuscular Hemoglobin 26.7 pg Mean Corpuscular Hemoglobin Concent 31.8 g/dl Platelet Count 275 K/uL Mean Platelet Volume 9.4 fL Neutrophils (%) (Auto) 83.4 % Lymphocytes (%) (Auto) 15.3 % Monocytes (%) (Auto) 0.4 % Eosinophils (%) (Auto) 0.0 % Basophils (%) (Auto) 0.0 % Neutrophils # (Auto) 6.87 K/uL Lymphocytes # (Auto) 1.26 K/uL Monocytes # (Auto) 0.03 K/uL Eosinophils # (Auto) 0.00 K/uL Basophils # (Auto) 0.00 K/uL RDW Standard Deviation 54.3 fL RDW Coefficient of Variation 17.6 % Immature Granulocyte % (Auto) 0.9 % Immature Granulocyte # (Auto) 0.07 K/uL Nucleated RBC Absolute Count (auto) 0.03 K/uL Nucleated Red Blood Cells % 0.4 % Sodium Level 143 mmol/L Potassium Level 3.8 mmol/L Chloride Level 107 mmol/L Carbon Dioxide Level 26 mmol/L Anion Gap 10.0 mmol/L Blood Urea Nitrogen 16 mg/dl Creatinine 1.20 mg/dl Est Creatinine Clear Calc Drug Dose 58.4 ml/min Estimated GFR () 58.5 Estimated GFR (Non- 50.5 BUN/Creatinine Ratio 13.3 Random Glucose 129 mg/dl Lactic Acid Level 3.8 mmol/L Calcium Level 8.6 mg/dl Total Bilirubin 0.3 mg/dl Aspartate Amino Transf (AST/SGOT) 10 U/L Alanine Aminotransferase (ALT/SGPT) 29 U/L Alkaline Phosphatase 54 U/L Total Protein 5.8 gm/dl Albumin 3.1 gm/dl Globulin 2.7 gm/dl Albumin/Globulin Ratio 1.1 Assessment and Plan 56 y/o F who was admitted on 07/21 for Crohn's flare Crohn's flare: feeling better on Solu Medrol 40mg IV q8 titrated to PO opiates, will have IV morphine on board. advance to full liquid diet consult [facility] for recommendations On phone discussed with Dr. Manley and will start 50 mg of prednisone tomorrow daily. and He will discuss with Outside Gi regarding lactic acid. Lactic acid has been increased.. will continue with antibiotics as per Gastro. Goal is to change to PO meds tomorrow for discharge planning on if all goes well. Lactic acidosis. Lactic acid increased to around 3. Patient does not have any other signs of acid base disorder. Ischemic bowel has been ruled out today. I am not too concerned with this finding and explained to patient that we will treat her clinically as ichemic bowel has been ruled. A possiblity of her lactic acidosis may be D-lactic acid from malabsorption from her crohn's. GI recommends possibly consulting Nephro or critical care if lactic increases tomorrow. Migraines: no headache currently Anxiety: continue home Valium for sleep GERD: continue home meds Other: Full code Continued [facility] stay due to: multiple IV medications needed Discharge planning: home
[2017-07-25] MEDS ORDERED: ONDANSETRON 8MG OD TAB PO PRN (14:00)
[2017-07-25] MEDS ORDERED: MoRPHine SULFATE 4 MG/ML 1 ML CARP\\VIAL IV STA (17:34)
[2017-07-25] MEDS ORDERED: PROMETHAZINE HCL INJ 25 MG in SODIUM CHLORIDE 0.9% 50ML 50 ML IV SCH (18:30)
--- NOTE | 2017-07-25 19:27 | GASTROENTEROLOGY PROGRESS NOTE ---
DATE: 07/25/2017 GASTROENTEROLOGY INPATIENT PROGRESS NOTE SUBJECTIVE: This is my initial evaluation of this patient. Dr. Dawson have been following the patient since her admission on July 21. The patient is from the [facility] and follows at [facility] for many years with Crohn disease. I spoke with the patient and her for approximately 40 minutes today to gain some insight into her background. The patient historically has been treated with prednisone and had declined the use of immune modulators many years ago for some of the potential risks associated with this agent. Over the years, the patient had been on Remicade, which worked for many years, developed antibodies, and then changed to Humira which also worked for many years, although again developed antibodies. There was some deterioration in her GI symptoms, mostly diarrhea and abdominal pain and ultimately within the past several weeks or months was changed to vedolizumab. The patient was admitted for diarrhea and abdominal pain. She has never had surgeries for Crohn disease or other bowel resection. She has had several endoscopies and other imaging study for a variety of symptoms. They seemed to recall last colonoscopy was about a year and half ago at [facility] for which no mucosal defects were found with intubation of the TI up to 20 cm according to the patient's . Historically, there has been a concern of small bowel disease for which partial obstructions, full obstructions and an intussusception that the patient's described. She did undergo a capsule study, although other diagnositics are unclear. Additionally, he seems to be describing that the patient underwent a Sitz marker, colonic transit study and that after 6-7 days images still showed most, if not all of the rings being retained. At that time, the patient was not on any opiates or anticholinergics that would affect motility. On admission, the patient did have an elevated white count and most notably was found to have an elevated lactate level of uncertain origin. LABORATORY STUDIES: White count elevation on July 21 was 11.2, this steadily declined until today's value 8.23. Her hemoglobin initially at 12.2, seems to stabilize around 9.2 to 10. Platelets are satisfactory, MCV is normal at 83. Her serum chemistries consistently have show known a normal BUN and creatinine of 16 and 1.2, and a bicarbonate on admission that was 26 and maintained in normal pattern throughout this hospitalization. What was noted was an elevated lactate level, first detected on July 21, at which point it was 3.1, the next day 4.6 and later in the evening of July 22 was 5.6. This has decreased somewhat and went through serial measurements of 2.7, 3.5 and again slightly increasing at 3.8 today. LFTs have been consistently normal with normal bilirubin, alkaline phosphatase. Albumin is low at 3.1. Lipase was normal on admission. IMAGING DATA: The patient had multiple imaging studies, particularly CT scan and CT enterography. There was no evidence for vascular anomalies or vascular insufficiency in the celiac trunk or SMA distribution. There is a question of mild colonic fecal retention without bowel obstruction, mild colonic diverticulosis without evidence of diverticulitis. The SMA, KADIE and celiac trunk reveal patency and mild submucosal fat deposition in the distal/terminal ileum is nonspecific. However, there is no point of blockage, intestinal wall gas or transition zones appreciated. There are gallstones. On the initial ER, again mild thickening and minimal pericolonic fat stranding at the splenic flex of the colon and descending colon were identified that was consistent with a nonspecific colitis and favored in inflammatory process. Impression: Exact distribution of the patient's Crohn disease not fully known, but it appears that it may represent both colonic and small bowel, historically. Currently, the patient is somewhat lethargic due to her pain control and antiemetic therapy and has been on IV Solu-Medrol 40 mg q. 8 since admission. She has had BMs today, although historically since admission, she has not had many stools and is without significant diarrhea. Blood cultures to date show no growth and urine is unremarkable. REVIEW OF SYSTEMS: Otherwise noncontributory. PHYSICAL EXAMINATION: VITAL SIGNS: Today is afebrile 36.7, blood pressure 115/72, room air 95%, respirations 18, heart rate 70. GENERAL: The patient shows evidence for engel facies with erythema. HEENT: Sclerae anicteric, conjunctivae moist. HEART: Normal S1, S2. LUNGS: Clear to auscultation. ABDOMEN: Soft, nontender, nondistended currently without rebound or guarding. There are positive bowel sounds. I do not appreciate hepatosplenomegaly. There is no evidence of bulging flanks or tense ascites or shifting dullness. EXTREMITIES: Without clubbing, cyanosis. There is trace edema bilaterally. RECTAL: Deferred. MEDICATIONS: List currently includes Solu-Medrol 40 q. 8, Benadryl, propranolol 10 mg 3 times daily, pantoprazole, famotidine, Valium, Prozac, pravastatin; Cipro and Flagyl were started near the time of admission due to the mild leukocytosis and evidence of elevated lactate level. IMPRESSION AND PLAN: Source of the patient's lactate level is unclear. There does not appear to be any evidence of focal bowel wall thickening, transition points, bowel obstruction or vascular anomalies that might suggest an ischemic process. Interestingly, her bicarb has been persistently normal since admission despite these elevated lactate levels. There is some fecal retention, but is unclear if this is related to some of the narcotic use and or antiemetic use. I had a lengthy discussion with the patient and her regarding these potential causes. He did offer that this process of intussusception has been present and may raise the question of whether or not the patient's intermittent episodes of pain and diarrhea may be associated with intermittent intussusception and partial obstruction, although chronically the bowel is not reportedly dilated. It is unclear if that there is an active colitis occurring as repeat CT scan does not show obvious inflammation, although the initial admission colonoscopy does suggest some inflammatory features in the left colon. They do remember having a capsule endoscopy at [place]. CT enterography here did not show an obvious transition point, focal inflammation or distortion of the bowel wall that would suggest an ischemic event. I made the following recommendations: I will attempt to contact Dr. Vargas at [place] who has followed the patient for several years for insight as well as to determine an intermediate and long-term plan for the patient upon discharge. Presently, I believe it is reasonable to discontinue antibiotics, transition the patient to oral prednisone at 50 mg daily, continue oral intake and at some point, it may be reasonable to repeat a colonoscopy, either during this hospitalization or soon upon return to the [facility]. If tomorrow's lactate level remains elevated, either evaluation by intensive care therapy or nephrology may be beneficial to see if there are any potential causes of the patient's elevated value. In addition, we will see if [place] has any record or knowledge of chronically elevated lactate level. All of their questions were answered, further recommendations to follow. Will discuss advancing diet tomorrow after evaluation and blood work is available. Depending on the details of the prior capsule, the patient's seems to recall that the area of intussusception may have been in the ileum. Short of surgery, one potential method to explore this may be a retrograde and/or antegrade double balloon endoscopy to see if there is a focal point of transition or intussusception. This raised the question potentially of a small bowel lymphoma or other benign or malignant process. However, the patient does not describe any night sweats, fevers or chills and this symptom and process has been present for several months or possibly years, according to their history. All questions answered. Addendum: ~ 7:00 PM Case d/w Dr Vargas at [place]. He will look into [place] records RE: previous lactate levels and prior imaging regarding question of intussusception. Agreeable to current plan during this hospitalization. [email or web address] FIGUEROA
[2017-07-25] MEDS ORDERED: PROMETHAZINE HCL INJ 25 MG in SODIUM CHLORIDE 0.9% 50ML 50 ML IV PRN (20:45)
[2017-07-25] MEDS ORDERED: PROMETHAZINE HCL 25 MG TAB PO PRN (20:45)
[2017-07-25] MEDS: HYDROmorphone INJ 1 MG/ML SYR IV PRN (21:25)
[2017-07-26] MEDS: DIAZEPAM 5MG TAB PO SCH ×2 (00:10→19:46)
[2017-07-26 00:12] VITALS: BP 131/81; PULSE 85; TEMP 36.7; O2SAT 91
[2017-07-26] MEDS: HYDROmorphone INJ 1 MG/ML SYR IV PRN ×2 (01:39→06:00)
[2017-07-26] MEDS: SODIUM CHLORIDE 0.9% 1000ML 1,000 ML IV SCH ×3 (04:37→23:39)
[2017-07-26 07:32] LABS: HEMATOCRIT 30.6 % (37-47); MEAN CELL VOLUME 84.1 fL (80-100); MEAN CORPUSCULAR HEMOGLOBIN 26.4 pg (25-34); MEAN CORPUSCULAR HGB CONC 31.4 g/dl (32-36); PLATELET COUNT 283 K/uL (130-400); RED BLOOD COUNT 3.64 M/uL (4.2-5.4); WHITE BLOOD COUNT 11.06 K/uL (4.8-10.8)
[2017-07-26 07:37] VITALS: BP 132/84; PULSE 89; TEMP 36.6; O2SAT 90
[2017-07-26 07:37] LABS: BUN/CREATININE RATIO 14.3 (10-20); CALCIUM 8.1 mg/dl (8.5-10.1); CREATININE 1.1 mg/dl (0.60-1.20); POTASSIUM 3.2 mmol/L (3.5-5.1)
[2017-07-26] MEDS: FAMOTIDINE 20 MG TAB PO SCH ×2 (08:32→19:44)
[2017-07-26] MEDS: PANTOprazole SOD 40 MG TAB PO SCH ×2 (08:32→19:44)
[2017-07-26] MEDS: PRAVASTATIN SOD 20 MG TAB PO SCH (08:32)
[2017-07-26] MEDS: PROPRANOLOL HCL 10 MG TAB PO SCH ×3 (08:33→19:44)
[2017-07-26] MEDS: PAROXETINE 20 MG TAB PO SCH (08:33)
[2017-07-26] MEDS: OXYCODONE/ACETAMINOPHEN 10/325MG TAB PO PRN ×3 (09:38→23:39)
--- NOTE | 2017-07-26 13:16 | Gastroenterology Progress Note ---
Progress Note Date of Service: Jul 26, 2017 Subjective Pt evaluation today including: conversation w/ patient, conversation w/ family (), physical exam, chart review, lab review, review of studies, review of inpatient medication list CC f/u crohns, abd pain HPI with patient who states patient stated some confusing things on phone and told me she was not DCed but leaving hospital for an appointment. She does know she is in [employer]. She tolerated sandwhich for lunch. Some abd pain. DR Manley spoke with Dr Vargas her GI at [facility] this morning and Dr Vargas did not recall intussception before and did not recall elevated lactic acid but was going to look into those and contact Dr Manley. Review of Systems Respiratory: No shortness of breath Cardiac: + chest pain Medications Current Inpatient Medications Medications (Trade) Dose Ordered Sig/Leslie Route Start Time Stop Time Status Last Admin Dose Admin Acetaminophen (Tylenol Tab) 650 mg Q4H PRN PO 07/21/17 14:45 08/20/17 14:44 Magnesium Hydroxide (Milk Of Magnesia Susp) 30 ml Q6H PRN PO 07/21/17 14:45 08/20/17 14:44 Diazepam (Valium Tab) 15 mg HS PO 07/21/17 21:00 08/20/17 20:59 07/26/17 00:10 15 MG Famotidine (Pepcid Tab) 20 mg BID PO 07/21/17 20:00 08/20/17 20:59 07/26/17 08:32 20 MG Pantoprazole Sodium (Protonix Tab) 40 mg BID PO 07/21/17 20:00 08/20/17 20:59 07/26/17 08:32 40 MG Pravastatin Sodium (Pravachol Tab) 20 mg DAILY PO 07/22/17 08:00 08/21/17 08:59 07/26/17 08:32 20 MG Propranolol HCl (Inderal Tab) 10 mg TID PO 07/21/17 20:00 08/20/17 20:59 07/26/17 08:33 10 MG Paroxetine HCl (pAXil TAB) 60 mg QAM PO 07/22/17 08:00 08/21/17 08:59 07/26/17 08:33 60 MG Sodium Chloride 1,000 ml @ 100 mls/hr Q10H IV 07/21/17 14:45 11/5/17 14:44 07/26/17 04:37 100 MLS/HR Diphenhydramine HCl (Benadryl Syrup) 25 mg Q4H PRN PO 07/21/17 14:45 08/20/17 14:44 Miscellaneous (Iv Fluids Completed) 1 ea PRN PRN N/A 07/21/17 15:15 07/21/18 15:14 Ioversol (Optiray 320) 125 ml UD PRN IV 07/24/17 12:30 07/28/17 12:29 Oxycodone/ Acetaminophen (Percocet 10-325MG Tab) 1 tab Q4H PRN PO 07/24/17 18:15 08/07/17 18:14 07/26/17 09:38 1 TAB Promethazine HCl (Phenergan Supp) 25 mg Q6H PRN [place] 07/25/17 11:15 08/24/17 11:14 07/25/17 11:27 25 MG Ondansetron HCl (Zofran Odt) 8 mg Q6H PRN PO 07/25/17 14:00 08/24/17 13:59 07/25/17 14:34 8 MG Promethazine HCl 25 mg/Sodium Chloride 51 ml @ 204 mls/hr Q6H PRN IV 07/25/17 20:45 08/24/17 20:44 07/26/17 00:10 204 MLS/HR Promethazine HCl (Phenergan Tab) 25 mg Q6H PRN PO 07/25/17 20:45 08/24/17 20:44 Prednisone (PredniSONE TAB) 50 mg DAILY PO 07/27/17 08:00 08/26/17 07:59 Objective Vital Signs Date Time Temp Pulse Resp B/P (MAP) Pulse Ox O2 Delivery O2 Flow Rate FiO2 07/26/17 08:00 Room Air 07/26/17 07:37 36.6 89 18 132/84 (100) 90 Room Air 07/26/17 00:12 36.7 85 16 131/81 (98) 91 Room Air 07/26/17 00:00 Room Air 07/25/17 20:00 Room Air Physical Exam General Appearance: WD/WN, no apparent distress Respiratory/Chest: lungs clear, no respiratory distress Cardiovascular: regular rate, rhythm, no murmur Abdomen: normal bowel sounds, non tender, soft, no organomegaly Neurologic/Psych: alert Laboratory Results Last 24 Hours Test 07/26/17 06:59 07/26/17 08:10 White Blood Count 11.06 K/uL Red Blood Count 3.64 M/uL Hemoglobin 9.6 g/dL Hematocrit 30.6 % Mean Corpuscular Volume 84.1 fL Mean Corpuscular Hemoglobin 26.4 pg Mean Corpuscular Hemoglobin Concent 31.4 g/dl RDW Standard Deviation 55.0 fL RDW Coefficient of Variation 17.7 % Platelet Count 283 K/uL Mean Platelet Volume 10.0 fL Sodium Level 144 mmol/L Potassium Level 3.2 mmol/L Chloride Level 106 mmol/L Carbon Dioxide Level 32 mmol/L Anion Gap 6.0 mmol/L Blood Urea Nitrogen 16 mg/dl Creatinine 1.10 mg/dl Est Creatinine Clear Calc Drug Dose 63.7 ml/min Estimated GFR () 65.0 Estimated GFR (Non- 56.1 BUN/Creatinine Ratio 14.3 Random Glucose 79 mg/dl Calcium Level 8.1 mg/dl Procalcitonin < 0.05 ng/ml Lactic Acid Level 2.0 mmol/L Assessment and Plan crohns--currrently stable and would continue the prednisone 50 mg daily as outpt. mental status change-suspect from IV narcotics and IV phenergan so I stopped them. . She and state phenergan supp have helped in past without mental status issues and has used norco in past without mental status issues. elev lactic acid--normal today Abd pain--crohns in differential--overall improved diarrhea--crohns in differential but check Cdiff also N/V --could be secondary to crohns elevated WBC--slightly worse today but not worrisome GERD--acid suppression--protonix bid and pepcid at hs If mental status clears an GI issues remain stable then anticipate DC tomorrow with close GI f/u at [facility] [address].
[2017-07-26 14:53] VITALS: BP 115/75; PULSE 93; TEMP 36.6; O2SAT 93
[2017-07-26] MEDS ORDERED: POTASSIUM CHLORIDE 20 MEQ TABCR PO ONE (16:15)
--- NOTE | 2017-07-26 16:19 | Progress Note ---
Subjective Date of Service: Jul 26, 2017. Subjective Pt evaluation today including: conversation w/ patient, conversation w/ family , physical exam Was told by GI earlier that patient was a little lethargic, and it was believed that this was due to narcotics. When I saw patient, she was back to baseline (07-26-17) at 16:00. Patient reports feeling better and is happy with the fact that her lactic acid has improved. She does state that she has a ton of stress at home. Problem List Medical Problems: (1) Exacerbation of Crohn's disease Status: Acute Review of Systems Cardiac: No chest pain, No orthopnea Abdomen: No see HPI, No pain, No nausea Musculoskeletal: No joint pain Neurologic: No memory loss, No paralysis Psychiatric: No depression symptoms, No anhedonism Heme: No abnormal bleeding/bruising Endo: No fatigue All Other Systems: Reviewed and Negative Medications Current Inpatient Medications Medications (Trade) Dose Ordered Sig/Leslie Route Start Time Stop Time Status Last Admin Dose Admin Acetaminophen (Tylenol Tab) 650 mg Q4H PRN PO 07/21/17 14:45 08/20/17 14:44 Magnesium Hydroxide (Milk Of Magnesia Susp) 30 ml Q6H PRN PO 07/21/17 14:45 08/20/17 14:44 Diazepam (Valium Tab) 15 mg HS PO 07/21/17 21:00 08/20/17 20:59 07/26/17 19:46 15 MG Famotidine (Pepcid Tab) 20 mg BID PO 07/21/17 20:00 08/20/17 20:59 07/27/17 07:42 20 MG Pantoprazole Sodium (Protonix Tab) 40 mg BID PO 07/21/17 20:00 08/20/17 20:59 07/27/17 07:42 40 MG Pravastatin Sodium (Pravachol Tab) 20 mg DAILY PO 07/22/17 08:00 08/21/17 08:59 07/27/17 07:42 20 MG Propranolol HCl (Inderal Tab) 10 mg TID PO 07/21/17 20:00 08/20/17 20:59 07/27/17 07:42 10 MG Paroxetine HCl (pAXil TAB) 60 mg QAM PO 07/22/17 08:00 08/21/17 08:59 07/27/17 07:41 60 MG Sodium Chloride 1,000 ml @ 100 mls/hr Q10H IV 07/21/17 14:45 08/20/17 14:44 07/26/17 23:39 100 MLS/HR Diphenhydramine HCl (Benadryl Syrup) 25 mg Q4H PRN PO 07/21/17 14:45 08/20/17 14:44 Miscellaneous (Iv Fluids Completed) 1 ea PRN PRN N/A 07/21/17 15:15 07/21/18 15:14 Ioversol (Optiray 320) 125 ml UD PRN IV 07/24/17 12:30 07/28/17 12:29 Oxycodone/ Acetaminophen (Percocet 10-325MG Tab) 1 tab Q4H PRN PO 07/24/17 18:15 08/07/17 18:14 07/26/17 23:39 1 TAB Promethazine HCl (Phenergan Supp) 25 mg Q6H PRN ID 07/25/17 11:15 08/24/17 11:14 07/27/17 00:55 25 MG Ondansetron HCl (Zofran Odt) 8 mg Q6H PRN PO 07/25/17 14:00 08/24/17 13:59 07/25/17 14:34 8 MG Promethazine HCl (Phenergan Tab) 25 mg Q6H PRN PO 07/25/17 20:45 08/24/17 20:44 Prednisone (PredniSONE TAB) 50 mg DAILY PO 07/27/17 08:00 08/26/17 07:59 07/27/17 07:42 50 MG Potassium Chloride (Klor-Con Tab) 40 meq BID PO 07/26/17 20:00 08/25/17 19:59 07/27/17 07:49 40 MEQ Objective Vital Signs Date Time Temp Pulse Resp B/P (MAP) Pulse Ox O2 Delivery O2 Flow Rate FiO2 07/26/17 14:53 36.6 93 16 115/75 (88) 93 Room Air 07/26/17 08:00 Room Air 07/26/17 07:37 36.6 89 18 132/84 (100) 90 Room Air 07/26/17 00:12 36.7 85 16 131/81 (98) 91 Room Air 07/26/17 00:00 Room Air 07/25/17 20:00 Room Air Physical Exam Comments: General Appearance: WD/WN, no apparent distress Respiratory/Chest: lungs clear, no respiratory distress Cardiovascular: regular rate, rhythm, no murmur Abdomen: normal bowel sounds, non tender, soft, no organomegaly Neurologic/Psych: alert Laboratory Results Last 24 Hours Test 07/26/17 06:59 07/26/17 08:10 White Blood Count 11.06 K/uL Red Blood Count 3.64 M/uL Hemoglobin 9.6 g/dL Hematocrit 30.6 % Mean Corpuscular Volume 84.1 fL Mean Corpuscular Hemoglobin 26.4 pg Mean Corpuscular Hemoglobin Concent 31.4 g/dl RDW Standard Deviation 55.0 fL RDW Coefficient of Variation 17.7 % Platelet Count 283 K/uL Mean Platelet Volume 10.0 fL Sodium Level 144 mmol/L Potassium Level 3.2 mmol/L Chloride Level 106 mmol/L Carbon Dioxide Level 32 mmol/L Anion Gap 6.0 mmol/L Blood Urea Nitrogen 16 mg/dl Creatinine 1.10 mg/dl Est Creatinine Clear Calc Drug Dose 63.7 ml/min Estimated GFR () 65.0 Estimated GFR (Non- 56.1 BUN/Creatinine Ratio 14.3 Random Glucose 79 mg/dl Calcium Level 8.1 mg/dl Procalcitonin < 0.05 ng/ml Lactic Acid Level 2.0 mmol/L Assessment and Plan 56 y/o F who was admitted on 07/21 for Crohn's flare Crohn's flare: changed today to PO prednisone titrated to PO opiates, stopped IV opiates advance to full liquid diet consult [facility] for recommendations Lactic acid has normalized. will stop antibiotics Lactic acidosis. resolved. unsure cause. Migraines: no headache currently Anxiety: continue home Valium for sleep GERD: continue home meds Other: Full code Continued [facility] stay due to: other Discharge planning: home
[2017-07-26] MEDS: POTASSIUM CHLORIDE 20 MEQ TABCR PO SCH (19:45)
[2017-07-27 00:20] VITALS: BP 133/82; PULSE 79; TEMP 36.7; O2SAT 91
[2017-07-27] MEDS: PROMETHAZINE HCL 25 MG SUPP PR PRN ×2 (00:55→10:11)
[2017-07-27] MEDS: PAROXETINE 20 MG TAB PO SCH (07:41)
[2017-07-27] MEDS: PANTOprazole SOD 40 MG TAB PO SCH (07:42)
[2017-07-27] MEDS: FAMOTIDINE 20 MG TAB PO SCH (07:42)
[2017-07-27] MEDS: PROPRANOLOL HCL 10 MG TAB PO SCH (07:42)
[2017-07-27] MEDS: PRAVASTATIN SOD 20 MG TAB PO SCH (07:42)
[2017-07-27] MEDS: POTASSIUM CHLORIDE 20 MEQ TABCR PO SCH (07:49)
[2017-07-27 07:50] VITALS: BP 135/83; PULSE 71; TEMP 36.7; O2SAT 90
[2017-07-27 08:00] VITALS: O2SAT 90
[2017-07-27 08:03] LABS: COMPLETE YES; EOS % 0.8 %; IG% 1.2 %; LYMPH % 20.6 %; LYMPH ABS # 1.89 K/uL (1.2-3.4); MEAN CELL VOLUME 83.6 fL (80-100); MEAN CORPUSCULAR HEMOGLOBIN 26.7 pg (25-34); MEAN PLATELET VOLUME 9.6 fL (7.4-10.4); MONO % 14.6 %; NEUT % 62.8 %; PLATELET COUNT 249 K/uL (130-400); RED BLOOD COUNT 3.59 M/uL (4.2-5.4); WHITE BLOOD COUNT 9.18 K/uL (4.8-10.8)
[2017-07-27 08:30] LABS: BUN/CREATININE RATIO 13.8 (10-20); CALCIUM 8.5 mg/dl (8.5-10.1); POTASSIUM 3.7 mmol/L (3.5-5.1)
[2017-07-27 08:31] LABS: ALB/GLOB RATIO 1.1 (0.9-2)
[2017-07-27] MEDS ORDERED: NURSING VERBAL MED ORDER ONE (09:30)
[2017-07-27] MEDS: OXYCODONE/ACETAMINOPHEN 10/325MG TAB PO PRN (10:15)
[2017-07-27] MEDS ORDERED: PRD50 PO (10:31)
[2017-07-27] MEDS ORDERED: OXYC-88 PO (10:31)
--- NOTE | 2017-07-27 10:36 | Discharge Instructions ---
Discharge Instructions Date of Service Jul 27, 2017. Admission Reason for Admission: Crohns Disease Discharge Discharge Diagnosis / Problem: Crohn Disease Flair Discharge Goals Goal(s): Decrease discomfort, Improve function Activity Recommendations Activity Limitations: resume your previous activity . Instructions / Follow-Up Instructions / Follow-Up F/U within 1 week with Home electro mechanic for tapering instructions of your steroids Current Hospital Diet Patient's current hospital diet: Low Fiber Diet Discharge Diet Recommended Diet: Low Fiber Diet Pending Studies Studies pending at discharge: no Medical Emergencies . Who to Call and When: Medical Emergencies: If at any time you feel your situation is an emergency, please call 911 immediately. . Non-Emergent Contact Non-Emergency issues call your: Barrel Drum Cutter Call Non-Emergent contact if: your pain is worsening . . "Provider Documentation" section prepared by Hadley Singh. . Cryogenics Engineer Recommendations Cryogenics Engineer Recommendations: continue the prednisone 50 mg daily as outpatient until seen by Home GI doctor. VTE Core Measure Inpt VTE Proph given/why not?: Treatment not indicated (patient ambulating)
--- NOTE | 2017-07-27 10:39 | Discharge Summary ---
Discharge Summary Date of Service Jul 27, 2017. Discharge Summary Admission Date: Jul 21, 2017 at 14:57 Discharge Date: Jul 27, 2017 Hospital Course 56 y/o F who was admitted on 07/21 for Crohn's flare Crohn's flare: changed today to PO prednisone titrated to PO opiates, stopped IV opiates advance to full liquid diet consult [facility] for recommendations Lactic acid has normalized. will stop antibiotics Lactic acidosis. resolved. unsure cause. Migraines: no headache currently Anxiety: continue home Valium for sleep GERD: continue home meds Other: Full code This includes examination of the patient, discharge planning, medication reconciliation, and communication with other providers. Discharge Instructions Please refer to the electronic Patient Visit Report (Discharge Instructions) for additional information.
[2017-07-27 10:40] VITALS: BP 135/83; PULSE 71; TEMP 36.7; O2SAT 90
== END 2017-07-27 13:42 | disposition home or self-care (01) | DRG 386 ==
LOC: C.EDB 09:31 → C.4E 14:57 → EDBEDREQ 15:02 → ENRESERV 15:29
PROVIDERS: ADMIT Family Medicine; ATTEND Internal Medicine Sports Medicine
DX: K50.00 Crohn's disease of small intestine without complications (principal); E87.2 Acidosis; R41.82 Altered mental status, unspecified; T42.6X5A Adverse effect of other antiepileptic and sedative-hypnotic drugs, initial encounter; T40.605A Adverse effect of unspecified narcotics, initial encounter; G43.909 Migraine, unspecified, not intractable, without status migrainosus; F41.9 Anxiety disorder, unspecified; K21.9 Gastro-esophageal reflux disease without esophagitis; Z79.52 Long term (current) use of systemic steroids; Z79.899 Other long term (current) drug therapy; Z88.0 Allergy status to penicillin; Z88.2 Allergy status to sulfonamides; Z88.6 Allergy status to analgesic agent